=== PATIENT | female | born 1925 | race African-American/Black ===

== ENCOUNTER 2017-06-18 09:43 | Inpatient (IN) | payer MEDICARE, MEDICAID ==
[2017-06-18] MEDS ORDERED: Ondansetron HCl/PF 4 MG/2 ML Vial ONE ×2 (10:27→10:45)
[2017-06-18 10:29] LABS: Bilirubin Negative (Negative); Blood, Urine Trace (Negative); Glucose, Urine (Dipstick) Negative (Negative); Ketone, Urine 40 mg/dL (Negative); Nitrite Negative (Negative); Protein, Urine (Dipstick) 100 mg/dL (Neg-Trace); Urobilinogen 0.2 mg/dL (0.2-1.0)
[2017-06-18 10:32] LABS: Bacteria/HPF 4+ HPF (None Seen); Hyaline Casts/LPF 0-3 HYALINE CAST LPF (0-3 Hyaline); Squamous Epithelial 0-3 HPF (0-3)
[2017-06-18 10:34] LABS: Renal Epithelial None Seen HPF (0-3); Transitional Epithelial NONE SEEN HPF (0-3)
[2017-06-18] MEDS ORDERED: Morphine 10 MG/ML VIAL ONE (10:45)
[2017-06-18 11:26] LABS: Hematocrit 52.6 % (36.0-47.0); Mean Platelet Volume 8.7 fL (7.4-10.4); Red Blood Cell (RBC) Count 5.82 mill/uL (4.20-5.40); White Blood Cell (WBC) Count 16.6 thou/uL (4.8-10.8)
[2017-06-18] MEDS ORDERED: Pantoprazole 80 MG, Admixture Fee 1 EACH in Sodium Chloride 0.9% 100 ML IVP SCH (11:30)
[2017-06-18 11:40] LABS: PTT 27.1 SEC (22.9-36.1); Prothrombin Time 13.7 SEC (12.0-14.7)
[2017-06-18 11:43] LABS: #Basophils 0.1 thou/uL (0.0-0.2); #Eosinphils 0.1 thou/uL (0.0-0.7); #Lymphocytes 2.4 thou/uL (1.20-3.40); #Monocytes 0.7 thou/uL (0.11-0.59); #Neutrophils 13.3 thou/uL (1.40-6.50); %Basophils 0.3 % (0.0-1.0); %Eosinophils 0.6 % (0.0-10.0); %Lymphocytes 14.7 % (21.0-51.0); Band 2 % (5-11); Neutrophil 77 % (42-75)
[2017-06-18 11:48] LABS: ALT (SGPT) 8 U/L (8-55); AST (SGOT) 14 U/L (5-34); Alkaline Phosphatase 108 U/L (40-150); Anion Gap 21 mmol/L (10-20); BUN (Urea Nitrogen) 12 mg/dL (9.8-20.1); Bilirubin, Total 0.7 mg/dL (0.2-1.2); Calc. Creatinine Clearance 0 mL/min (70-130); Calcium 9.6 mg/dL (7.8-10.44); Carbon Dioxide 19 mmol/L (23-31); Chloride 101 mmol/L (98-107); Estimated GFR-MDRD 64; Globulin 3.4 g/dL (2.4-3.5); Lipase Less than 4 U/L (8-78); Protein, Total 7.2 g/dL (6.0-8.3)
--- NOTE | 2017-06-18 12:08 | RAD ---
ACUTE ABDOMINAL SERIES: INDICATION: Abdominal pain. FINDINGS: There are dilated loops of small bowel with differential air fluid levels seen within the central ab domen suspicious for a partial small bowel obstruction. The lungs are clear. cardiomediastinal kaitlynn houette is within normal limits. There are vascular calcifications involving the aortic arch. Ther e is advanced degenerative change of both glenohumeral joints. There is scattered degenerative jones ge of the lower lumbar spine. IMPRESSION: Findings suggesting partial small bowel obstruction. No definite free air identified. POS: [facility]
[2017-06-18] MEDS ORDERED: Fentanyl 100 MCG/2 ML VIAL ONE (12:47)
[2017-06-18] MEDS ORDERED: Lidocaine Viscous Sol 2% 15 ml UD Cup ONE ×2 (12:47→12:48)
[2017-06-18] MEDS ORDERED: Benzocaine 20% Spray 60 ML CAN ONE (12:47)
[2017-06-18] MEDS ORDERED: Oxymetazoline HCl 0.05% ( 15 ML ) ONE (13:02)
--- NOTE | 2017-06-18 13:15 | CT ---
CT OF THE ABDOMEN AND PELVIS WITH IV CONTRAST: Date: 06/18/17 INDICATION: History of vomiting and abdominal pain. History of cholecystectomy. COMPARISON: CT of the abdomen and pelvis dated 10/26/16. FINDINGS: There are numerous dilated loops of small bowel within the central abdomen with detecting swirling o f the mesentery suspicious for mesenteric herniation and close loop obstruction. This is suspicious for small bowel type volvulus. There is edema within the mesenteric leads involved. No definite pneu matosis is evident. No portal venous gas is present. There is decompression of the distal small bret l and colon. Mild scattered free fluid is seen within the abdomen and pelvis. There is a stable left renal cyst and lobular contour of both kidneys. Bladder, rectum, and perirectal soft tissues are un remarkable. There are numerous small pulmonary nodules within both lower lobes which are stable. The re is a small hiatal hernia. The liver, spleen, pancreas, and adrenal glands are within normal limit s. There is diffuse osteopenia. There is scattered degenerative change. IMPRESSION: 1. Findings suspicious for a high grade close loop small bowel obstruction. Surgical consultation i s recommended. 2. Fat-containing paraumbilical hernia. 3. Stable bibasilar pulmonary nodules. 4. Hiatal hernia. 5. Left renal cyst. POS: [facility]
[2017-06-18] MEDS ORDERED: Morphine 4 MG/ML Carpuject SLOW IVP PRN (13:18)
[2017-06-18] MEDS ORDERED: Sodium Chloride 0.9% 500 ML IV SCH (13:30)
[2017-06-18] MEDS ORDERED: Ondansetron HCl/PF 8 MG in Sodium Chloride 0.9% 50 ML IVPB SCH ×2 (13:30→18:45)
--- NOTE | 2017-06-18 13:35 | HP ---
CHIEF COMPLAINT: Epigastric pain, nausea, vomiting. HISTORY OF PRESENT ILLNESS: The patient is an 89-year-old female who was about 18-hour history of m idepigastric pain associated with nausea and vomiting. No previous episodes. She had an open cristiano cystectomy about 1981. She reports passing flatus and having 3 bowel movements last night. She has frequent constipation. PAST MEDICAL HISTORY: Hypertension, obesity, asthma, arthritis. PAST SURGICAL HISTORY: Open cholecystectomy. MEDICATIONS: Include omeprazole, mirtazapine, Klor-Con, montelukast, furosemide, Tylenol with codei ne, losartan, carvedilol, clonidine. ALLERGIES: PENICILLIN. SOCIAL HISTORY: She lives by herself. No tobacco or alcohol. FAMILY HISTORY: Hypertension. PHYSICAL EXAMINATION VITAL SIGNS: Heart rate 123, blood pressure 137/96, 96% saturation. GENERAL: She is awake, alert. She is actively vomiting. She does not have an NG tube in yet. HEENT: Otherwise, unremarkable with exception for alopecia. She is morbidly obese. LUNGS: Clear. HEART: Regular rate and rhythm. ABDOMEN: Distended. She is moderately tender in the central abdomen. She has an umbilical hernia that is reducible. Bowel sounds are quiet. LABORATORY DATA AND X-RAY FINDINGS: She has white count of 16.6, H and H 16 and 52, platelet count 189. Electrolytes show sodium 137, potassium 3.5, chloride 101, CO2 of 19, glucose 215, BUN of 12, creatinine 0.9. Urinalysis, 11-20 white cells. PT 13, INR 1. She had a KUB that shows partial sma ll-bowel obstruction. She had a CT scan that showed a transition zone in the mid small bowel with s ome mild swirling of the mesentery. No defined closed loop, but very dilated proximal small bowel a nd stomach. ASSESSMENT: Small-bowel obstruction. PLAN: NG suction, IV hydration. If she does not respond, recommend surgical therapy. We will get medical assistance in consultation.
[2017-06-18 15:00] VITALS: BMI 41.1
[2017-06-18] MEDS: 1/2 NS w/KCL 20 mEq 1,000 ML IV SCH ×2 (15:02→20:36)
[2017-06-18] MEDS ORDERED: Morphine 4 MG/ML VIAL SLOW IVP PRN (15:16)
[2017-06-18] MEDS: Morphine PF 1 MG/ML SYR IVP PRN (15:19)
[2017-06-18] MEDS ORDERED: ISOVUE-370 76%-LOCM 1 ML ONE (15:43)
[2017-06-18] MEDS ORDERED: PROVENTIL INHALER 6.7 G (200 INHALATIONS) INH PRN (18:13)
[2017-06-18] MEDS: Morphine 4 MG/ML VIAL SLOW IVP PRN ×2 (18:35→22:35)
[2017-06-18] MEDS: Mometasone/Formoterol 120 PUFF INHALER INH SCH (19:33)
--- NOTE | 2017-06-18 23:21 | CON ---
DATE OF CONSULTATION: 06/18/2017 PRIMARY CARE PROVIDER: Dr. Leo. PRIMARY SERVICE ATTENDING: Dr. Hakan Gutierrez. CHIEF COMPLAINT: Abdominal pain, nausea, and vomiting. HISTORY OF PRESENT ILLNESS: This is an 89-year-old -Dominican female who complains of less th an 24-hour history of nausea, vomiting, and midepigastric abdominal pain. The patient states she morgan d multiple bouts of emesis overnight on 06/17/2017 and 06/18/2017. The patient denied any recent tr auma injury, travel history, or change to dietary habits. The patient states she does have difficul ty with recurrent constipation, but has noticed approximately 3 bowel movements in the last 24 hours . The patient denied any specific melena or dark stools. The patient denied any history of stomach ulcerations or prior history of bowel obstruction. The patient does admit that she underwent a cho lecystectomy in the past, but no current surgeries of the abdomen. The patient initially rated the pain as 5/10, sharp, with associated nausea and vomiting. The patient did not try to leave the symp toms with any specific medications due to persistent and recurrent vomiting. In the emergency room, the patient underwent general evaluation with KUB showing evidence of partial bowel obstruction and CT of the abdomen and pelvis confirming high grade bowel obstruction likely in the mid small bowel region. The patient was evaluated by the General Surgery Service with recommendations for NG tube p lacement, IV fluids, pain control and antiemetics. The patient was transferred to the surgical floo r for observation and evaluation. PAST MEDICAL HISTORY: 1. Hypertension. 2. Hyperlipidemia. 3. Degenerative joint disease. 4. Anxiety disorder. 5. Morbid obesity. 6. History of asthma. PAST SURGICAL HISTORY: Status post cholecystectomy. CURRENT MEDICATIONS: 1. ProAir HFA 2 puffs inhaled q.6 hours p.r.n. 2. Amlodipine 5 mg one tab p.o. daily. 3. Coreg 3.125 mg p.o. b.i.d. 4. Celexa 10 mg p.o. daily. 5. Lasix 20 mg 1 tab p.o. daily. 6. Losartan 50 mg 1 tab p.o. daily. 7. Lovastatin 40 mg p.o. at bedtime. 8. Reglan 10 mg p.o. t.i.d. 9. Remeron 15 mg p.o. at bedtime. 10. Dulera 200/5 mcg 2 puffs inhaled b.i.d. 11. Singulair 10 mg p.o. daily. 12. Multivitamin 1 tab p.o. daily. 13. Omeprazole 20 mg 1 tab p.o. daily. 14. Klor-Con 8 mEq p.o. daily. 15. Clonidine 0.2 mg p.o. b.i.d. ALLERGIES: PENICILLIN. FAMILY HISTORY: Sister with breast cancer. Another sister with coronary artery disease with PR at 49 years of age. SOCIAL HISTORY: The patient is , resides in [place], [place]. No current alcohol, tobacco or il licit drug use. Accompanied by multiple family members in the hospital. REVIEW OF SYSTEMS: The following complete review of systems was negative, unless otherwise mentione d in the HPI or below: Constitutional: Weight loss or gain, ability to conduct usual activities. Skin: Rash, itching. Eyes: Double vision, pain. ENT/Mouth: Nose bleeding, neck stiffness, pain, tenderness. Cardiovascular: Palpitations, dyspnea on exertion, orthopnea. Respiratory: Shortness of breath, wheezing, cough, hemoptysis, fever or night sweats. Gastrointestinal: Poor appetite, abdominal pain, heartburn, nausea, vomiting, constipation, or diar jean. Genitourinary: Urgency, frequency, dysuria, nocturia. Musculoskeletal: Pain, swelling. Neurologic/Psychiatric: Anxiety, depression. Allergy/Immunologic: Skin rash, bleeding tendency. PHYSICAL EXAMINATION: VITAL SIGNS: Currently, blood pressure 128/83, pulse 106, respiratory rate 14, temperature 97.5 deg zoraida Fahrenheit, O2 saturation 98% on room air. GENERAL APPEARANCE: This is an 89-year-old -Dominican female, in mild to moderate distress. HEENT: Pupils are equal, round, and reactive to light and accommodation. Extraocular muscles are i ntact. No scleral icterus, no conjunctival injection. Nares patent. OP is clear. Teeth in fair r epair. NECK: Supple, no cervical adenopathy, no thyromegaly, no carotid bruits, no JVD appreciated. Cervi solomon spine with full active and passive range of motion. CHEST: Lungs with diminished breath sounds in the bases bilaterally. CARDIOVASCULAR: S1, S2 with tachycardia. ABDOMEN: Obese, distended with tenderness to palpation in the midepigastric region. Bowel sounds d iminished in all four quadrants. No palpable mass. Landmarks are difficult to palpate due to patie nt's body habitus. EXTREMITIES: Warm and dry with fair turgor. No clubbing, cyanosis or asymmetric edema appreciated. Pulses are palpable distally at the dorsalis pedis, posterior tibial, and popliteal arteries bilat erally. Capillary refill less than 2 seconds. NEUROLOGIC: Cranial nerves II-XII are grossly intact. No focal or lateralizing signs appreciated. PERTINENT LABORATORY AND X-RAY FINDINGS: Sodium 137, potassium 3.5, chloride 101, CO2 of 19, BUN 12 , creatinine 0.99, estimated GFR 64, glucose 215, calcium 9.6. LFTs within normal limits. Albumin 3.8, lipase less than 4. CBC showed a white blood cell count of 16.6, hemoglobin 17, hematocrit 53, platelet count 189 with 88% neutrophilia. KUB of the abdomen dated 06/18/2017 showed partial small -bowel obstruction. CT of the abdomen and pelvis dated 06/18/2017 showed high grade transition zone in the mid small bowel region concerning for obstruction. ASSESSMENT AND PLAN: 1. Small-bowel obstruction. The patient will be placed on the surgical floor with primary attendin g General Surgery Service. Continue NG tube with low intermittent wall suction. Ice chips p.r.n. Continue morphine sulfate 4 mg IV q.3 hours p.r.n. Continue antiemetics with Zofran 8 mg IV q.6 elena rs p.r.n. We will continue to monitor clinically. The patient may need additional intervention inc luding surgical intervention. 2. Nausea and vomiting secondary to #1. Continue intravenous fluids with normal saline. Antiemeti cs with Zofran. 3. Metabolic acidosis. Secondarily to #1. We will continue intravenous fluids and monitor clinica lly. Repeat CO2 level in the a.m. 4. Hypertension. We will hold antihypertensive regimen given the patient's n.p.o. status. Resume when clinically able to tolerate p.o. intake. 5. History of asthma. No current evidence of exacerbation. Resume home metered dose inhalers incl uding ProAir HFA and Dulera. Continue oxygen supplementation to maintain O2 saturation greater than or equal to 90%. 6. Prophylaxis. Sequential compression devices while in bed. Protonix 40 mg IV q.24 hours. 7. Code status is FULL. Surrogate medical decision maker is the patient's daughter. Thank you for the consult. We will continue to follow with the primary service.
[2017-06-19 05:25] LABS: ALT (SGPT) 27 U/L (8-55); AST (SGOT) 45 U/L (5-34); Alkaline Phosphatase 100 U/L (40-150); Anion Gap 22 mmol/L (10-20); BUN (Urea Nitrogen) 19 mg/dL (9.8-20.1); Band 15 % (5-11); Bilirubin, Total 0.6 mg/dL (0.2-1.2); Calc. Creatinine Clearance 28 mL/min (70-130); Calcium 9.1 mg/dL (7.8-10.44); Carbon Dioxide 16 mmol/L (23-31); Chloride 103 mmol/L (98-107); Estimated GFR-MDRD 26; Globulin 3.3 g/dL (2.4-3.5); Hematocrit 54.7 % (36.0-47.0); Mean Platelet Volume 8.3 fL (7.4-10.4); Neutrophil 66 % (42-75); Protein, Total 6.4 g/dL (6.0-8.3); Red Blood Cell (RBC) Count 5.86 mill/uL (4.20-5.40); White Blood Cell (WBC) Count 22.6 thou/uL (4.8-10.8)
[2017-06-19] MEDS: 1/2 NS w/KCL 20 mEq 1,000 ML IV SCH ×3 (05:57→21:05)
[2017-06-19] MEDS: Mometasone/Formoterol 120 PUFF INHALER INH SCH ×2 (07:16→18:40)
[2017-06-19] MEDS ORDERED: Sodium Chloride 0.9% 1,000 ML IV SCH (08:00)
--- NOTE | 2017-06-19 08:21 | RAD ---
SEMIUPRIGHT PORTABLE CHEST 1 VIEW: HISTORY: An 89-year-old female with shortness of breath. COMPARISON: 03/24/17. FINDINGS: Less than optimal inspiration. Blunting of both costophrenic angles with some linear stranding in t he infrahilar regions bilaterally. No new confluent process. Given less inspiration, appearance is stable from prior study. IMPRESSION: Poor inspiratory effort with some vascular crowding and some increased markings in the bases and sli ght costophrenic angle blunting without confluent pneumonia. Continue short-term followup. POS: [facility]
--- NOTE | 2017-06-19 08:22 | RAD ---
ABDOMEN 1 VIEW: FINDINGS: NG tube is noted with the tip extending into the stomach. There is some residual contrast within th e kidneys from previous CT scan. There are some abnormally dilated loops of small bowel in the uppe r and mid abdomen, evidence for small bowel obstruction. The patient does have a large body habitus . IMPRESSION: Nasogastric tube in place. Several small bowel loops which are minimally dilated. Evidence for sma ll bowel obstruction. Continue short-term followup. POS: [facility]
[2017-06-19] MEDS ORDERED: Midazolam HCl 2 mg/2 ml Vial ONE (09:10)
[2017-06-19] MEDS ORDERED: Propofol 1,000 MG/100 ML VIAL IV ONE (09:10)
[2017-06-19 09:27] LABS: Troponin I 0.115 ng/mL (< 0.028)
[2017-06-19] MEDS: Pantoprazole 40 MG VIAL IVP SCH (10:08)
[2017-06-19] MEDS ORDERED: Albumin 5% 500 ML ONE ×2 (10:47→12:16)
[2017-06-19] MEDS ORDERED: Norepinephrine 4 MG/4 ML VIAL ONE (10:47)
[2017-06-19] MEDS ORDERED: Fentanyl 250 MCG/5 ML VIAL ONE (10:47)
[2017-06-19] MEDS ORDERED: Lidocaine 2% Jelly 5 ML TUBE ONE (11:03)
[2017-06-19] MEDS ORDERED: PHENYLEPHRINE-NS 100 MCG/ML 10 ML SYRINGE ONE (11:15)
[2017-06-19] MEDS ORDERED: Propofol 200 MG/20 ML VIAL ONE (11:15)
[2017-06-19] MEDS ORDERED: Glycopyrrolate 0.2 MG/ML 5 ML SYRINGE ONE (11:15)
[2017-06-19] MEDS ORDERED: Succinylcholine Chloride 20 MG/ML 10 ml SYRINGE FS ONE (11:15)
[2017-06-19] MEDS ORDERED: Lidocaine 2% PF 10 ML AMP (For Epidural Use) ONE (11:15)
--- NOTE | 2017-06-19 12:01 | PDOC.PN ---
- Subjective Encounter Start Date: 06/19/17 Encounter Start Time: 11:15 -: old records requested/rev code green was called, pt was hypotensive. - Objective MAR Reviewed: Yes Vital Signs & Weight: Vital Signs (12 hours) Temp Pulse Resp BP Pulse Ox 06/19/17 08:20 98.1 F 110 H 23 H 98 06/19/17 08:10 98.1 F 110 H 23 H 101/51 L 98 06/19/17 07:18 97 06/19/17 07:16 116 H 16 06/19/17 04:20 97.5 F L 109 H 16 91/64 97 06/19/17 01:14 98 06/19/17 00:10 98.4 F 110 H 18 93/63 99 Most Recent Monitor Data Heart Rate from ECG 106 NIBP 110/52 NIBP BP-Mean 63 Respiration from ECG 23 SpO2 99 I&O: 06/18/17 06/19/17 06/20/17 06:59 06:59 06:59 Intake Total 2275 2000 Output Total 900 395 Balance 1375 1605 Result Diagrams: 06/19/17 04:13 06/19/17 04:13 Additional Labs: Accuchecks 06/19/17 08:05 POC Glucose 154 H Radiology Reviewed by me: Yes Phys Exam - Physical Examination Constitutional: NAD HEENT: PERRLA, moist MMs, sclera anicteric Neck: no JVD, supple Respiratory: no wheezing, no rales, no rhonchi Cardiovascular: RRR, no significant murmur, no rub Gastrointestinal: soft, non-tender, no distention, positive bowel sounds Musculoskeletal: no edema, pulses present Neurological: non-focal, normal sensation Psychiatric: normal affect, A&O x 3 Skin: no rash, normal turgor Dx/Plan (1) Acute kidney failure Status: Acute (2) Encephalopathy acute Code(s): G93.40 - ENCEPHALOPATHY, UNSPECIFIED Status: Acute (3) Hypotension Status: Acute (4) SBO (small bowel obstruction) Code(s): K56.609 - UNSP INTESTNL OBST, UNSP TO PARTIAL VERSUS COMPLETE OBST Status: Acute (5) Sepsis Code(s): A41.9 - SEPSIS, UNSPECIFIED ORGANISM Status: Acute (6) Anxiety and depression Code(s): F41.9 - ANXIETY DISORDER, UNSPECIFIED; F32.9 - MAJOR DEPRESSIVE DISORDER, SINGLE EPISODE, UNSPECIFIED Status: Chronic (7) Asthma Code(s): J45.909 - UNSPECIFIED ASTHMA, UNCOMPLICATED Status: Chronic (8) GERD (gastroesophageal reflux disease) Code(s): K21.9 - GASTRO-ESOPHAGEAL REFLUX DISEASE WITHOUT ESOPHAGITIS Status: Chronic (9) HLD (hyperlipidemia) Code(s): E78.5 - HYPERLIPIDEMIA, UNSPECIFIED Status: Chronic Qualifiers: Hyperlipidemia type: unspecified Qualified Code(s): E78.5 - Hyperlipidemia , unspecified (10) HTN (hypertension) Code(s): I10 - ESSENTIAL (PRIMARY) HYPERTENSION Status: Chronic Qualifiers: (11) Morbid obesity with BMI of 40.0-44.9, adult Code(s): E66.01 - MORBID (SEVERE) OBESITY DUE TO EXCESS CALORIES; Z68.41 - BODY MASS INDEX (BMI) 40.0-44.9, ADULT Status: Chronic (12) Acute abdomen Code(s): R10.0 - ACUTE ABDOMEN Status: Suspected (13) Lactic acidosis Code(s): E87.2 - ACIDOSIS Status: Acute - Plan cont current plan of care * will transfer to ccu * will give bolus of fluid * will need surgery today * discussed with surgeon. * will monitor Review of Systems - Review of Systems Other: unable to review as pt is altered. - Medications/Allergies Allergies/Adverse Reactions: Allergies Allergy/AdvReac Type Severity Reaction Status Date / Time Penicillins Allergy rash--"been Verified 03/24/17 23:23 a long time" Medications: Current Medications Albuterol Sulfate (Proventil Hfa) 2 puff INH Q6H PRN PRN Reason: SOB &/or Wheezing Albuterol/Ipratropium (Duoneb) 3 ml NEB [id number] SAIMA Potassium Chloride/Sodium Chloride (1/2 Ns W/Kcl 20 Meq) 1,000 mls @ 125 mls/ hr IV .Q8H SAIMA Last Admin: 06/19/17 05:57 Dose: 1,000 mls Levofloxacin 500 mg/ Device 100 mls @ 100 mls/hr IVPB WILLCALL SAIMA Stop: 06/20/17 10:16 Mometasone Furoate/Formoterol Fumar (Dulera 200 Mcg/5 Mcg Inhaler) 2 puff INH BID-RT SAIMA Last Admin: 06/19/17 07:16 Dose: 2 puff Morphine Sulfate (Duramorph) 2 mg IVP Q4H PRN PRN Reason: Mild-Moderate Pain (1-5) Last Admin: 06/18/17 15:19 Dose: 2 mg Morphine Sulfate (Morphine Sulfate) 4 mg SLOW IVP Q3H PRN PRN Reason: Moderate to Severe Pain (6-10) Last Admin: 06/18/17 22:35 Dose: 4 mg Pantoprazole Sodium (Protonix) 40 mg IVP DAILY [facility] Last Admin: 06/19/17 10:08 Dose: 40 mg
[2017-06-19] MEDS ORDERED: SUGAMMADEX SODIUM 500 MG/5 ML VIAL ONE (12:39)
--- NOTE | 2017-06-19 13:55 | CON ---
DATE OF SERVICE: 06/19/2017 SERVICE: Pulmonary Medicine. REASON FOR CONSULTATION: Hypotension. HISTORY OF PRESENT ILLNESS: The patient is an 89-year-old -[place]an female who was in her usual state of health when she started to have a history of mid epigastric discomfort associated with nausea and vomiting roughly 1 day ago. She had no previous episodes of something similar. Otherwise, she had a couple of normal bowel movements and was passing flatus yesterday, but has stopped doing this. She had increasing abdominal pain and distention overnight with an increasing lactate. Blood pressures fell off. A Code Ramón was called this morning. She was given a liter of fluid and subsequently transitioned down to the ICU while we were waiting for her to go to the operating room. She currently denies any fevers, chills, chest discomfort, palpitations or difficulty with breathing. PAST MEDICAL HISTORY: 1. Hypertension. 2. Obesity. 3. Asthma. 4. Osteoarthritis. 5. Anxiety disorder. PAST SURGICAL HISTORY: Cholecystectomy. MEDICATIONS: List of her inpatient medications was reviewed. No updates were made. ALLERGIES: PENICILLIN. FAMILY HISTORY: Noncontributory. SOCIAL HISTORY: She lives in [place], [place]. She denies any alcohol, tobacco or illicit drug use. She has no exposure to chemicals, dust asbestos or tuberculosis. REVIEW OF SYSTEMS: General, head, ears, eyes, nose, throat, cardiovascular, respiratory, GI, , musculoskeletal, neurologic and skin is negative except as mentioned in the HPI. PHYSICAL EXAMINATION: VITAL SIGNS: Afebrile, pulse 106, blood pressure 110/52, respirations 23, saturation 99% on 2 liters nasal cannula. GENERAL: The patient is awake and alert, in no apparent distress. LUNGS: Decent air entry. Dependent crackles are minimal. HEART: Normal rate, regular. ABDOMEN: Distended. Tender to palpation throughout with positive rebound. Bowel sounds absent. GENITOURINARY: Mclaughlin catheter in place. NEUROLOGIC: Grossly nonfocal. LABORATORY DATA: WBC 22.6 and increasing, hemoglobin 16.9, platelets 299,000. INR 1.0. Creatinine 2.16, anion gap 22, bicarbonate 16. Basic metabolic profile is otherwise unremarkable. AST is up trending. Troponin 0.115, lactate 4.7. Liver function studies are unremarkable. Lipase is below the assay limits of normal. Urinalysis is positive for ketones, blood, leukocyte esterase, and small number of white blood cells. IMAGIN. X-ray of the abdomen demonstrates NG tube in good position. There are several small loops of bowel, are minimally dilated. There is evidence of a small-bowel obstruction: 2. Chest x-ray demonstrates no acute cardiopulmonary abnormality. There are low lung volumes associated with abdominal distention. 3. CT of the abdomen and pelvis demonstrates findings suspicious for high grade closed loop small-bowel obstruction. Fat containing a periumbilical hernia. Bibasilar pulmonary nodules are stable. There is a hiatal hernia in the left renal cyst. ASSESSMENT: 1. Severe sepsis. 2. Small-bowel obstruction, suspected. 3. Peritonitis, possible. 4. Ischemic bowel, possible. 5. Asthma without acute exacerbation. 6. Deconditioning. 7. Debility, advanced. 8. Obstructive sleep apnea. PLAN: We will continue to provide supportive care. It would not surprise me if the patient came back from the operating room on mechanical ventilation. If this occurs, we will be available in that period for support. Her blood pressure responded to 1 liter of fluid. Empiric antibiotics directed at GI pathology will be initiated. The patient is extraordinarily sick at this time, but hopefully surgical procedure is curative. We will know more after the laparotomy. ANATOLIY
--- NOTE | 2017-06-19 14:18 | RAD ---
SINGLE VIEW OF THE CHEST 06/19/17 COMPARISON: 06/19/17 at 8:01 a.m. HISTORY: Central line placement. FINDINGS: Single view of the chest shows normal sized cardiomediastinal silhouette. An NG tube courses off the anterior aspect of the film. There is a left subclavian central venous catheter with its tip in the superior vena cava. No pneumothorax is seen. There is obscurity of the left costophrenic angle whic h may represent atelectasis or a small left lower lobe infiltrate. IMPRESSION: 1. Status post central line placement without evidence of complication. 2. Left basilar atelectasis versus infiltrate. POS: [facility]
[2017-06-19] MEDS: Morphine PF 1 MG/ML SYR IVP PRN ×2 (14:39→20:13)
[2017-06-19] MEDS: MEROPENEM 1 GM/50 ML 1 GM in Premix Bag 1 BAG IVPB SCH ×2 (14:42→21:06)
--- NOTE | 2017-06-19 17:12 | OP ---
PREOPERATIVE DIAGNOSIS: Small-bowel obstruction with possible ischemic bowel. SURGEON: Hakan Gutierrez M.D. PROCEDURE PERFORMED: Exploratory laparotomy, small bowel resection. INDICATIONS: This is an 89-year-old female, who presented last night with a small-bowel obstruction , continued to get worse, became more acidotic, more pain. FINDINGS: There is about 4 feet of very ischemic/possibly necrotic bowel, 4+ feet of healthy bowel. PROCEDURE IN DETAIL: After informed consent was obtained, the patient was taken to the operating ro om and given general endotracheal anesthesia. She was placed in the supine position. Her abdomen w as prepped and draped in the usual fashion. A midline incision was performed. The subcu divided sh arply. She had umbilical hernia, but there was no bowel within it. The fascia was incised sharply with a 10 blade scalpel and the peritoneum opened. There was quite a bit of serosanguineous periton eal fluid about 2 liters that was removed. Underneath the omentum, it was bharath necrotic appearing bowel. The bowel was reduced and it turned out there was a band that was constricting proximally an d distally. This was lysed. It was healthy bowel proximally and healthy bowel distally. It was th e central portion of the small bowel. The bowel looked pretty necrotic, went ahead and allowed it t o pink up as much as possible, washed the abdomen thoroughly, came back to it, there were multiple a reas that were very questionable. Even though a lot of the bowel seemed to pink up, there were a lo t of questionable areas, so I lamented on whether to do a second look operation or to resect the sma ll bowel and do a primary anastomosis. I measured off the proximal bowel, there was about 4 feet of proximal bowel and about a foot of distal small bowel was healthy. Elected that in her state she c ould not handle another septic event and went ahead and removed this questionable bowel. The bowel was stapled with a ROSARIO-75 on either end then enterotomies made and a [id number] functional end-to- end anastomosis was performed utilizing ROSARIO-75 and the common enterotomy closed with a ROSARIO-75. Then the mesentery was divided utilizing the large LigaSure and the specimen sent to pathology for [facility] er analysis. The mesenteric defect was closed with a running 3-0 Vicryl. The abdomen was thoroughl y irrigated and irrigation fluid removed. NG placement confirmed. Hemostasis was assured. The ome ntum placed anteriorly. The hernia had been completely reduced. The fascia was closed with a runni ng looped #1 PDS to include the hernia as well. Then, gloves and gowns were changed and the subcuta neous irrigated with pulse salvage inspector. Then the skin closed loosely with skin gem which were florencia joan in between. A sterile bandage applied. The patient tolerated the procedure well and transferre d to recovery in fair condition.
[2017-06-20] MEDS: Morphine 10 MG/ML VIAL SLOW IVP PRN ×2 (00:45→07:36)
[2017-06-20 04:47] LABS: #Lymphocytes 1.9 thou/uL (1.20-3.40); #Monocytes 0.7 thou/uL (0.11-0.59); #Neutrophils 5.7 thou/uL (1.40-6.50); %Basophils 0.1 % (0.0-1.0); %Lymphocytes 22.9 % (21.0-51.0); %Monocytes 8.4 % (0.0-10.0); Hematocrit 35.7 % (36.0-47.0); White Blood Cell (WBC) Count 8.3 thou/uL (4.8-10.8)
[2017-06-20 04:52] LABS: ALT (SGPT) 208 U/L (8-55); AST (SGOT) 247 U/L (5-34); Alkaline Phosphatase 58 U/L (40-150); Anion Gap 15 mmol/L (10-20); BUN (Urea Nitrogen) 30 mg/dL (9.8-20.1); Bilirubin, Total 0.5 mg/dL (0.2-1.2); Calc. Creatinine Clearance 31 mL/min (70-130); Calcium 7.8 mg/dL (7.8-10.44); Carbon Dioxide 20 mmol/L (23-31); Chloride 109 mmol/L (98-107); Estimated GFR-MDRD 29; Globulin 2.2 g/dL (2.4-3.5); Magnesium 1.5 mg/dL (1.6-2.6); Phosphorus 4.5 mg/dL (2.3-4.7); Protein, Total 5.3 g/dL (6.0-8.3)
[2017-06-20] MEDS: MEROPENEM 1 GM/50 ML 1 GM in Premix Bag 1 BAG IVPB SCH ×3 (06:02→21:06)
[2017-06-20] MEDS: 1/2 NS w/KCL 20 mEq 1,000 ML IV SCH ×3 (06:03→21:08)
[2017-06-20] MEDS: Mometasone/Formoterol 120 PUFF INHALER INH SCH ×2 (06:51→18:58)
[2017-06-20] MEDS: Pantoprazole 40 MG VIAL IVP SCH (07:36)
[2017-06-20] MEDS: Morphine PF 1 MG/ML SYR IVP PRN (10:56)
--- NOTE | 2017-06-20 11:49 | PRG ---
DATE OF SERVICE: 06/20/2017 SERVICE: Pulmonary Medicine. INTERVAL HISTORY: The patient is doing fine from a cardiovascular and respiratory standpoint. She has appropriate abdominal discomfort. Otherwise, she denies having any significant difficulty with breathing. She has no nausea or vomiting. She has not passed any gas and has not had any bowel mov ements. Otherwise, she is progressing as is expected. PHYSICAL EXAMINATION: VITAL SIGNS: Afebrile with a T-max of 99.1. Pulse 118, blood pressure 116/45, respirations 21, sat uration 95% on 2 liters nasal cannula. GENERAL: The patient is awake and alert in no apparent distress. HEENT: Normocephalic, atraumatic. Sclerae are white, conjunctivae pink. Oral and nasal mucosa is moist without lesions. LUNGS: Decent air entry. There are dependent crackles present. There is no prolonged expiratory p hase. Rhonchi are present, but clear with cough. HEART: Tachycardic. Regular. ABDOMEN: Soft, tender to palpation throughout. Bowel sounds are hypoactive. She has splinting ass ociated with abdominal discomfort. GENITOURINARY: Mclaughlin catheter in place. NEUROLOGIC: Grossly nonfocal. LABORATORY DATA: WBC 8.3, hemoglobin 11.5, platelets 162,000. The differential is actually reassur ing. INR 1.0. Creatinine 1.98 and gently improving. Basic metabolic profile is otherwise unremark able. Lactate has cleared to 1.1. AST and ALT are elevated. Magnesium is 1.5. Phosphorus 4.5. IMAGING: Chest x-ray demonstrates decreased lung volumes. Left basilar atelectasis is evident. Th ere may be an infiltrate there, but I favor atelectasis given her current situation. There is a lef t-sided subclavian central venous catheter that terminates in a decent position. Wide carinal angle may be suggestive of left atrial enlargement. ASSESSMENT: 1. Acute hypoxic respiratory failure. 2. Atelectasis, part of the left lower lobe. 3. Severe sepsis. 4. Small-bowel obstruction and ischemic gut, status post laparotomy and small bowel resection. 5. Peritonitis. 6. Asthma without acute exacerbation. 7. Deconditioning. 8. Debility, advanced. 9. Obstructive sleep apnea, mild. PLAN: We will continue supportive care including antibiotics. IV fluids will be decreased slightly . I will change her morphine to 2 mg q.2 hours. Lopressor will be provided on a p.r.n. basis. We will watch her ins and outs and if she becomes significantly volume overloaded, intermittent doses o f Lasix will be provided. We will schedule Tylenol 4 times daily to see if this can decrease narcot ic requirements.
[2017-06-20] MEDS: Acetaminophen 650 MG in Premix Bag 1 BAG IVPB SCH ×3 (12:11→23:17)
[2017-06-20] MEDS ORDERED: Sodium Chloride 0.9% 500 ML IV SCH (12:15)
--- NOTE | 2017-06-20 12:23 | PDOC.PN ---
- Subjective Encounter Start Date: 06/20/17 Encounter Start Time: 07:10 -: old records requested/rev in ccu, with NG tube with LIS, BP stable, NPO, no fever, family bedside - Objective MAR Reviewed: Yes Vital Signs & Weight: Vital Signs (12 hours) Temp Pulse Resp Pulse Ox 06/20/17 12:00 99.6 F 06/20/17 08:00 99.1 F 121 H 22 H 95 06/20/17 07:00 99.1 F 06/20/17 06:50 116 H 19 92 L 06/20/17 04:00 99.0 F 06/20/17 01:17 118 H 23 H 94 L Most Recent Monitor Data Heart Rate from ECG 120 NIBP 117/45 NIBP BP-Mean 74 Respiration from ECG 20 SpO2 96 I&O: 06/19/17 06/20/17 06/21/17 06:59 06:59 06:59 Intake Total 2275 3247 520 Output Total 900 1675 350 Balance 1375 1572 170 Result Diagrams: 06/20/17 04:10 06/20/17 04:10 Radiology Reviewed by me: Yes (chest xray) EKG Reviewed by me: Yes (tachycardia) Phys Exam - Physical Examination Constitutional: NAD HEENT: PERRLA, moist MMs, sclera anicteric ng tube with lis Neck: no JVD, supple Respiratory: no wheezing, no rales, no rhonchi reduced air entry at base Cardiovascular: RRR, no significant murmur, no rub tachycardia tender diffuse Musculoskeletal: no edema, pulses present Neurological: non-focal Lymphatic: no nodes Psychiatric: normal affect Skin: no rash, normal turgor Dx/Plan (1) Acute kidney failure Status: Acute (2) Encephalopathy acute Code(s): G93.40 - ENCEPHALOPATHY, UNSPECIFIED Status: Acute (3) Hypotension Status: Resolved (4) SBO (small bowel obstruction) Code(s): K56.609 - UNSP INTESTNL OBST, UNSP TO PARTIAL VERSUS COMPLETE OBST Status: Acute Comment: s/p laparotomy, small bowel resection (5) Sepsis Code(s): A41.9 - SEPSIS, UNSPECIFIED ORGANISM Status: Acute (6) Anxiety and depression Code(s): F41.9 - ANXIETY DISORDER, UNSPECIFIED; F32.9 - MAJOR DEPRESSIVE DISORDER, SINGLE EPISODE, UNSPECIFIED Status: Chronic (7) Asthma Code(s): J45.909 - UNSPECIFIED ASTHMA, UNCOMPLICATED Status: Chronic (8) GERD (gastroesophageal reflux disease) Code(s): K21.9 - GASTRO-ESOPHAGEAL REFLUX DISEASE WITHOUT ESOPHAGITIS Status: Chronic (9) HLD (hyperlipidemia) Code(s): E78.5 - HYPERLIPIDEMIA, UNSPECIFIED Status: Chronic Qualifiers: Hyperlipidemia type: unspecified Qualified Code(s): E78.5 - Hyperlipidemia , unspecified (10) HTN (hypertension) Code(s): I10 - ESSENTIAL (PRIMARY) HYPERTENSION Status: Chronic Qualifiers: (11) Morbid obesity with BMI of 40.0-44.9, adult Code(s): E66.01 - MORBID (SEVERE) OBESITY DUE TO EXCESS CALORIES; Z68.41 - BODY MASS INDEX (BMI) 40.0-44.9, ADULT Status: Chronic (12) Acute abdomen Code(s): R10.0 - ACUTE ABDOMEN Status: Suspected (13) Lactic acidosis Code(s): E87.2 - ACIDOSIS Status: Acute (14) Peritonitis Code(s): K65.9 - PERITONITIS, UNSPECIFIED Status: Acute (15) Sepsis with acute organ dysfunction Code(s): A41.9 - SEPSIS, UNSPECIFIED ORGANISM; R65.20 - SEVERE SEPSIS WITHOUT SEPTIC SHOCK Status: Acute (16) Left lower lobe pneumonia Code(s): J18.1 - LOBAR PNEUMONIA, UNSPECIFIED ORGANISM Status: Acute (17) Transaminitis Code(s): R74.0 - NONSPEC ELEV OF LEVELS OF TRANSAMNS & LACTIC ACID DEHYDRGNSE Status: Acute - Plan cont current plan of care, plan discussed w/ family, continue antibiotics, respiratory therapy, incentive spirometry * monitor today in ccu * continue ng tube with lis * continue meropenam * discussed with family bedside * repeat labs tomorrow * renal function improving. Review of Systems - Review of Systems Other: not reliable due to dementia - Medications/Allergies Allergies/Adverse Reactions: Allergies Allergy/AdvReac Type Severity Reaction Status Date / Time Penicillins Allergy rash--"been Verified 03/24/17 23:23 a long time" Medications: Current Medications Albuterol Sulfate (Proventil Hfa) 2 puff INH Q6H PRN PRN Reason: SOB &/or Wheezing Albuterol/Ipratropium (Duoneb) 3 ml NEB [id number] [facility] Last Admin: 06/20/17 06:50 Dose: 3 ml Meropenem 1 gm/ Device 50 mls @ 100 mls/hr IVPB Q8HR [facility] Last Admin: 06/20/17 06:02 Dose: 50 mls Acetaminophen 650 mg/ Device 65 mls @ 400 mls/hr IVPB Q6HR [facility] Stop: 06/21/17 06:10 Last Admin: 06/20/17 12:11 Dose: 65 mls Potassium Chloride/Sodium Chloride (1/2 Ns W/Kcl 20 Meq) 1,000 mls @ 100 mls/ hr IV .Q10H [facility] Sodium Chloride (Normal Saline 0.9%) 500 mls @ 999 mls/hr IV .Q31M [facility] Stop: 06/20/17 12:45 Last Admin: 06/20/17 12:22 Dose: 500 mls Metoprolol Tartrate (Lopressor) 5 mg IVP Q6H PRN PRN Reason: HR>110 Mometasone Furoate/Formoterol Fumar (Dulera 200 Mcg/5 Mcg Inhaler) 2 puff INH BID-RT [facility] Last Admin: 06/20/17 06:51 Dose: 2 puff Morphine Sulfate (Duramorph) 2 mg IVP Q2H PRN PRN Reason: Mild-Moderate Pain (1-5) Pantoprazole Sodium (Protonix) 40 mg IVP DAILY [facility] Last Admin: 06/20/17 07:36 Dose: 40 mg
[2017-06-20] MEDS: Metoprolol Tartrate 5 MG/5 ML VIAL IVP PRN (14:31)
[2017-06-21] MEDS: 1/2 NS w/KCL 20 mEq 1,000 ML IV SCH ×4 (02:16→22:04)
[2017-06-21] MEDS: Acetaminophen 650 MG in Premix Bag 1 BAG IVPB SCH (05:37)
[2017-06-21] MEDS: MEROPENEM 1 GM/50 ML 1 GM in Premix Bag 1 BAG IVPB SCH ×3 (05:37→21:33)
[2017-06-21] MEDS: Mometasone/Formoterol 120 PUFF INHALER INH SCH ×2 (07:02→18:54)
[2017-06-21 07:29] LABS: #Lymphocytes 2.5 thou/uL (1.20-3.40); #Monocytes 0.6 thou/uL (0.11-0.59); #Neutrophils 7.4 thou/uL (1.40-6.50); %Basophils 0.1 % (0.0-1.0); %Eosinophils 0.3 % (0.0-10.0); %Lymphocytes 23.6 % (21.0-51.0); Hematocrit 34.9 % (36.0-47.0); Mean Platelet Volume 7.6 fL (7.4-10.4); Red Blood Cell (RBC) Count 3.69 mill/uL (4.20-5.40); White Blood Cell (WBC) Count 10.5 thou/uL (4.8-10.8)
[2017-06-21 07:52] LABS: Anion Gap 14 mmol/L (10-20); BUN (Urea Nitrogen) 24 mg/dL (9.8-20.1); Calc. Creatinine Clearance 60 mL/min (70-130); Calcium 8.9 mg/dL (7.8-10.44); Carbon Dioxide 20 mmol/L (23-31); Chloride 110 mmol/L (98-107); Estimated GFR-MDRD 61
--- NOTE | 2017-06-21 08:38 | PRG ---
DATE OF SERVICE: 06/21/2017 SERVICE: Pulmonary Medicine. INTERVAL HISTORY: The patient is doing really quite well from a respiratory standpoint. She denies any shortness of breath or chest discomfort. She continues to have abdominal discomfort, which is appropriate. She has been able to get up out of bed into a chair twice daily. Otherwise, there has been no significant change in her condition. PHYSICAL EXAMINATION: VITAL SIGNS: Afebrile, pulse 98, blood pressure 144/59, respirations 21, saturation 95% on 2 liters nasal cannula. GENERAL: Patient is awake, alert, in no apparent distress. LUNGS: Excellent air entry. There are crackles present bibasilarly. No prolonged expiratory phase or wheezing is appreciated. HEART: Normal rate and regular. ABDOMEN: Soft, nontender, nondistended, bowel sounds positive. MUSCULOSKELETAL: No cyanosis or clubbing. There is 1+ pitting in the bilateral lower extremities. GENITOURINARY: No Mclaughlin. NEUROLOGIC: Grossly nonfocal. LABORATORY DATA: WBC 10.5, hemoglobin 11.1, platelets 173,000 and rebounding. INR 1.0. Basic meta bolic profile is completely unremarkable. Chloride 110, BUN 24. Creatinine has trended downward to 1.03. ASSESSMENT: 1. Acute hypoxic respiratory failure, stable. 2. Atelectasis of the left lower lobe. 3. Severe sepsis, improving. 4. Small-bowel obstruction and ischemic gut, status post laparotomy with small bowel resection. 5. Peritonitis, improving. 6. Asthma without acute exacerbation. 7. Deconditioning. 8. Debility advanced. 9. Obstructive sleep apnea, mild. PLAN: We will continue supportive care including antibiotics. We will work on mobilizing the patie nt as much as tolerated over the next 24-48 hours. As soon as she can tolerate p.o., her home rate control medications will be resumed. She will remain in the ICU if she is a little bit weak. If agapito martinez is doing well by the afternoon, she can go to the IMCU. Regardless of where she ends up, I will c ontinue to follow.
[2017-06-21] MEDS: Pantoprazole 40 MG VIAL IVP SCH (08:39)
[2017-06-21] MEDS: Morphine PF 1 MG/ML SYR IVP PRN ×3 (08:39→21:29)
[2017-06-21] MEDS: Metoprolol Tartrate 5 MG/5 ML VIAL IVP PRN (11:30)
[2017-06-21 12:54] LABS: Oxyhemoglobin 97.2 % (94.0-97.0); Sodium 140 mmol/L (135-148)
[2017-06-21 12:55] LABS: Mode OR ABG; Vent YES
--- NOTE | 2017-06-21 13:12 | PDOC.PN ---
- Subjective Encounter Start Date: 06/21/17 Encounter Start Time: 07:15 Patient seen and examined. No new complaints. No overnight events - Objective MAR Reviewed: Yes Vital Signs & Weight: Vital Signs (12 hours) Temp Pulse Resp Pulse Ox 06/21/17 12:00 98.9 F 06/21/17 07:54 98.2 F 98 21 H 95 06/21/17 07:01 98 21 H 94 L 06/21/17 07:00 98.2 F 06/21/17 04:00 99.0 F Most Recent Monitor Data Heart Rate from ECG 98 NIBP 182/51 NIBP BP-Mean 103 Respiration from ECG 20 SpO2 93 I&O: 06/20/17 06/21/17 06/22/17 06:59 06:59 06:59 Intake Total 3247 3541 Output Total 1675 2400 1390 Balance 1572 1141 -1390 Result Diagrams: 06/21/17 07:10 06/21/17 07:10 EKG Reviewed by me: Yes (nsr) Phys Exam - Physical Examination Constitutional: NAD HEENT: PERRLA, moist MMs, sclera anicteric Neck: no JVD, supple NG tube+ Respiratory: no wheezing, no rales, no rhonchi Cardiovascular: RRR, no significant murmur, no rub Gastrointestinal: soft, non-tender, no distention surgical site clean Musculoskeletal: no edema, pulses present Neurological: non-focal, normal sensation Lymphatic: no nodes Psychiatric: normal affect Skin: no rash, normal turgor Dx/Plan (1) Acute kidney failure Status: Resolved (2) Encephalopathy acute Code(s): G93.40 - ENCEPHALOPATHY, UNSPECIFIED Status: Resolved (3) Hypotension Status: Resolved (4) SBO (small bowel obstruction) Code(s): K56.609 - UNSP INTESTNL OBST, UNSP TO PARTIAL VERSUS COMPLETE OBST Status: Acute Comment: s/p laparotomy, small bowel resection (5) Sepsis Code(s): A41.9 - SEPSIS, UNSPECIFIED ORGANISM Status: Acute (6) Anxiety and depression Code(s): F41.9 - ANXIETY DISORDER, UNSPECIFIED; F32.9 - MAJOR DEPRESSIVE DISORDER, SINGLE EPISODE, UNSPECIFIED Status: Chronic (7) Asthma Code(s): J45.909 - UNSPECIFIED ASTHMA, UNCOMPLICATED Status: Chronic (8) GERD (gastroesophageal reflux disease) Code(s): K21.9 - GASTRO-ESOPHAGEAL REFLUX DISEASE WITHOUT ESOPHAGITIS Status: Chronic (9) HLD (hyperlipidemia) Code(s): E78.5 - HYPERLIPIDEMIA, UNSPECIFIED Status: Chronic Qualifiers: Hyperlipidemia type: unspecified Qualified Code(s): E78.5 - Hyperlipidemia , unspecified (10) HTN (hypertension) Code(s): I10 - ESSENTIAL (PRIMARY) HYPERTENSION Status: Chronic Qualifiers: (11) Morbid obesity with BMI of 40.0-44.9, adult Code(s): E66.01 - MORBID (SEVERE) OBESITY DUE TO EXCESS CALORIES; Z68.41 - BODY MASS INDEX (BMI) 40.0-44.9, ADULT Status: Chronic (12) Acute abdomen Code(s): R10.0 - ACUTE ABDOMEN Status: Acute (13) Lactic acidosis Code(s): E87.2 - ACIDOSIS Status: Resolved (14) Peritonitis Code(s): K65.9 - PERITONITIS, UNSPECIFIED Status: Acute (15) Sepsis with acute organ dysfunction Code(s): A41.9 - SEPSIS, UNSPECIFIED ORGANISM; R65.20 - SEVERE SEPSIS WITHOUT SEPTIC SHOCK Status: Acute (16) Left lower lobe pneumonia Code(s): J18.1 - LOBAR PNEUMONIA, UNSPECIFIED ORGANISM Status: Acute (17) Transaminitis Code(s): R74.0 - NONSPEC ELEV OF LEVELS OF TRANSAMNS & LACTIC ACID DEHYDRGNSE Status: Acute - Plan cont current plan of care, continue antibiotics, incentive spirometry * continue meropenam * medication reviewed as below * symptomatic treatment * ng tube with LIS * await GI function to return * pt is improving. Review of Systems - Review of Systems Other: not reliable due to dementia - Medications/Allergies Allergies/Adverse Reactions: Allergies Allergy/AdvReac Type Severity Reaction Status Date / Time Penicillins Allergy rash--"been Verified 03/24/17 23:23 a long time" Medications: Current Medications Albuterol Sulfate (Proventil Hfa) 2 puff INH Q6H PRN PRN Reason: SOB &/or Wheezing Albuterol/Ipratropium (Duoneb) 3 ml NEB [id number] [facility] Last Admin: 06/21/17 07:01 Dose: 3 ml Enoxaparin Sodium (Lovenox) 40 mg SC 2100 [facility] Meropenem 1 gm/ Device 50 mls @ 100 mls/hr IVPB Q8HR [facility] Last Admin: 06/21/17 05:37 Dose: 50 mls Potassium Chloride/Sodium Chloride (1/2 Ns W/Kcl 20 Meq) 1,000 mls @ 75 mls/hr IV .[id number] [facility] Last Admin: 06/21/17 11:28 Dose: 1,000 mls Metoprolol Tartrate (Lopressor) 5 mg IVP Q6H PRN PRN Reason: HR>110 Last Admin: 06/21/17 11:30 Dose: 5 mg Mometasone Furoate/Formoterol Fumar (Dulera 200 Mcg/5 Mcg Inhaler) 2 puff INH BID-RT [facility] Last Admin: 06/21/17 07:02 Dose: 2 puff Morphine Sulfate (Duramorph) 2 mg IVP Q2H PRN PRN Reason: Mild-Moderate Pain (1-5) Last Admin: 06/21/17 08:39 Dose: 2 mg Pantoprazole Sodium (Protonix) [address] [facility] Last Admin: 06/21/17 08:39 Dose: 40 mg
[2017-06-21 14:18] LABS: #Basophils 0.1 thou/uL (0.0-0.2); #Eosinphils 0.1 thou/uL (0.0-0.7); #Lymphocytes 2.2 thou/uL (1.20-3.40); #Monocytes 0.7 thou/uL (0.11-0.59); %Basophils 0.6 % (0.0-1.0); %Eosinophils 0.6 % (0.0-10.0); %Lymphocytes 20.2 % (21.0-51.0); %Monocytes 6.2 % (0.0-10.0); Hematocrit 34.4 % (36.0-47.0); Mean Platelet Volume 6.9 fL (7.4-10.4); Red Blood Cell (RBC) Count 3.66 mill/uL (4.20-5.40)
[2017-06-21 14:26] LABS: PTT 38.9 SEC (22.9-36.1); Prothrombin Time 15.4 SEC (12.0-14.7)
[2017-06-21 15:08] LABS: ALT (SGPT) 131 U/L (8-55); AST (SGOT) 77 U/L (5-34); Alkaline Phosphatase 80 U/L (40-150); Anion Gap 17 mmol/L (10-20); BUN (Urea Nitrogen) 21 mg/dL (9.8-20.1); Bilirubin, Total 0.4 mg/dL (0.2-1.2); Calc. Creatinine Clearance 73 mL/min (70-130); Calcium 8.7 mg/dL (7.8-10.44); Carbon Dioxide 18 mmol/L (23-31); Chloride 110 mmol/L (98-107); Cholesterol 154 mg/dl (< 200 Desired); Estimated GFR-MDRD 77; Globulin 2.4 g/dL (2.4-3.5); LDL Cholesterol, Calculated 96 mg/dL; Magnesium 1.9 mg/dL (1.6-2.6); Protein, Total 5.3 g/dL (6.0-8.3)
[2017-06-21] MEDS: cloNIDine 0.1mg/24 Hour PATCH TD SCH (16:04)
[2017-06-21] MEDS: Labetalol HCl 100 MG/20 ML VIAL SLOW IVP PRN (19:28)
[2017-06-21] MEDS: Enoxaparin Sodium 40 MG/0.4 ML SYRINGE SC SCH (21:29)
[2017-06-21] MEDS: Multivitamins, Adult 10 ML, TRACE ELEMENT CONCENTRATE 1 ML in D30W-AA 10% with Lytes 2,... IV SCH (22:00)
[2017-06-22] MEDS: MEROPENEM 1 GM/50 ML 1 GM in Premix Bag 1 BAG IVPB SCH ×3 (05:15→22:23)
[2017-06-22 06:05] LABS: #Eosinphils 0.1 thou/uL (0.0-0.7); #Lymphocytes 2.3 thou/uL (1.20-3.40); #Monocytes 0.6 thou/uL (0.11-0.59); #Neutrophils 7.3 thou/uL (1.40-6.50); %Basophils 0.2 % (0.0-1.0); %Eosinophils 0.9 % (0.0-10.0); %Lymphocytes 22.1 % (21.0-51.0); %Monocytes 5.5 % (0.0-10.0); Hematocrit 34.1 % (36.0-47.0); Mean Platelet Volume 7.2 fL (7.4-10.4); Red Blood Cell (RBC) Count 3.63 mill/uL (4.20-5.40); White Blood Cell (WBC) Count 10.2 thou/uL (4.8-10.8)
[2017-06-22 06:29] LABS: Anion Gap 10 mmol/L (10-20); BUN (Urea Nitrogen) 18 mg/dL (9.8-20.1); Calc. Creatinine Clearance 80 mL/min (70-130); Calcium 9.3 mg/dL (7.8-10.44); Carbon Dioxide 27 mmol/L (23-31); Chloride 106 mmol/L (98-107); Estimated GFR-MDRD 85; Magnesium 1.7 mg/dL (1.6-2.6)
[2017-06-22] MEDS: Labetalol HCl 100 MG/20 ML VIAL SLOW IVP PRN (07:12)
[2017-06-22] MEDS: Pantoprazole 40 MG VIAL IVP SCH (07:19)
[2017-06-22] MEDS: Morphine PF 1 MG/ML SYR IVP PRN (07:20)
[2017-06-22] MEDS: Mometasone/Formoterol 120 PUFF INHALER INH SCH ×2 (07:41→19:16)
[2017-06-22] MEDS ORDERED: Sodium Phosphate 15 MMOL in Sodium Chloride 0.9% 250 ML 250 ML IVPB SCH (07:45)
[2017-06-22] MEDS: Labetalol HCl 100 MG/20 ML VIAL SLOW IVP SCH ×4 (07:55→20:57)
[2017-06-22] MEDS: 1/2 NS w/KCL 20 mEq 1,000 ML IV SCH (07:58)
--- NOTE | 2017-06-22 11:28 | PDOC.PN ---
- Subjective Encounter Start Date: 06/22/17 Encounter Start Time: 08:15 Patient seen and examined. seen in CCU, hypertensive, No overnight events - Objective MAR Reviewed: Yes Vital Signs & Weight: Vital Signs (12 hours) Temp Pulse Resp BP Pulse Ox 06/22/17 07:55 89 06/22/17 07:42 99 06/22/17 07:38 89 17 99 06/22/17 07:30 98.4 F 103 H 17 97 06/22/17 07:12 103 H 186/72 H 06/22/17 07:00 98.4 F 06/22/17 04:00 98.5 F 06/22/17 01:06 96 06/22/17 00:00 98.1 F Most Recent Monitor Data Heart Rate from ECG 90 NIBP 171/56 NIBP BP-Mean 97 Respiration from ECG 34 SpO2 91 I&O: 06/21/17 06/22/17 06/23/17 06:59 06:59 06:59 Intake Total 3541 2548 Output Total 2400 4500 600 Balance 1141 -1952 -600 Result Diagrams: 06/22/17 05:57 06/22/17 05:57 EKG Reviewed by me: Yes (sinus tachycardia) Phys Exam - Physical Examination Constitutional: NAD HEENT: PERRLA, moist MMs, sclera anicteric NG tube with LIS Neck: no JVD, supple Respiratory: no wheezing, no rales, no rhonchi reduced air entry at base Cardiovascular: RRR, no significant murmur, no rub Gastrointestinal: soft surgical site with dressing Musculoskeletal: no edema, pulses present aguilar+ Neurological: non-focal, normal sensation Lymphatic: no nodes Psychiatric: normal affect Skin: no rash, normal turgor Dx/Plan (1) Acute kidney failure Status: Resolved (2) Encephalopathy acute Code(s): G93.40 - ENCEPHALOPATHY, UNSPECIFIED Status: Resolved (3) Hypotension Status: Resolved (4) SBO (small bowel obstruction) Code(s): K56.609 - UNSP INTESTNL OBST, UNSP TO PARTIAL VERSUS COMPLETE OBST Status: Acute Comment: s/p laparotomy, small bowel resection (5) Sepsis Code(s): A41.9 - SEPSIS, UNSPECIFIED ORGANISM Status: Acute (6) Anxiety and depression Code(s): F41.9 - ANXIETY DISORDER, UNSPECIFIED; F32.9 - MAJOR DEPRESSIVE DISORDER, SINGLE EPISODE, UNSPECIFIED Status: Chronic (7) Asthma Code(s): J45.909 - UNSPECIFIED ASTHMA, UNCOMPLICATED Status: Chronic (8) GERD (gastroesophageal reflux disease) Code(s): K21.9 - GASTRO-ESOPHAGEAL REFLUX DISEASE WITHOUT ESOPHAGITIS Status: Chronic (9) HLD (hyperlipidemia) Code(s): E78.5 - HYPERLIPIDEMIA, UNSPECIFIED Status: Chronic Qualifiers: Hyperlipidemia type: unspecified Qualified Code(s): E78.5 - Hyperlipidemia , unspecified (10) HTN (hypertension) Code(s): I10 - ESSENTIAL (PRIMARY) HYPERTENSION Status: Chronic Qualifiers: (11) Morbid obesity with BMI of 40.0-44.9, adult Code(s): E66.01 - MORBID (SEVERE) OBESITY DUE TO EXCESS CALORIES; Z68.41 - BODY MASS INDEX (BMI) 40.0-44.9, ADULT Status: Chronic (12) Acute abdomen Code(s): R10.0 - ACUTE ABDOMEN Status: Acute (13) Lactic acidosis Code(s): E87.2 - ACIDOSIS Status: Resolved (14) Peritonitis Code(s): K65.9 - PERITONITIS, UNSPECIFIED Status: Acute (15) Sepsis with acute organ dysfunction Code(s): A41.9 - SEPSIS, UNSPECIFIED ORGANISM; R65.20 - SEVERE SEPSIS WITHOUT SEPTIC SHOCK Status: Acute (16) Left lower lobe pneumonia Code(s): J18.1 - LOBAR PNEUMONIA, UNSPECIFIED ORGANISM Status: Acute (17) Transaminitis Code(s): R74.0 - NONSPEC ELEV OF LEVELS OF TRANSAMNS & LACTIC ACID DEHYDRGNSE Status: Acute - Plan cont current plan of care, continue antibiotics * will add labetolol IV q 3 hr * continue catapress patch * medication reviewed as below * symptomatic treatment * continue meropenam * await GI function to return * OK to transfer to surgical floor * stable and improving Review of Systems - Review of Systems Eyes: negative: Pain, Vision Change, Conjunctivae Inflammation, Eyelid Inflammation, Redness, Other ENT: negative: Ear Pain, Ear Discharge, Nose Pain, Nose Discharge, Nose Congestion, Mouth Pain, Mouth Swelling, Throat Pain, Throat Swelling, Other Respiratory: negative: Cough, Dry, Shortness of Breath, Hemoptysis, SOB with Excertion, Pleuritic Pain, Sputum, Wheezing Cardiovascular: negative: Chest Pain, Palpitations, Orthopnea, Paroxysmal Noc. Dyspnea, Edema, Light Headedness, Other Gastrointestinal: Nausea, Abdominal Pain. negative: Vomiting, Diarrhea, Constipation, Melena, Hematochezia, Other Genitourinary: negative: Dysuria, Frequency, Incontinence, Hematuria, Retention , Other Musculoskeletal: negative: Neck Pain, Shoulder Pain, Arm Pain, Back Pain, Hand Pain, Leg Pain, Foot Pain, Other - Medications/Allergies Allergies/Adverse Reactions: Allergies Allergy/AdvReac Type Severity Reaction Status Date / Time Penicillins Allergy rash--"been Verified 03/24/17 23:23 a long time" Medications: Current Medications Albuterol Sulfate (Proventil Hfa) 2 puff INH Q6H PRN PRN Reason: SOB &/or Wheezing Albuterol/Ipratropium (Duoneb) 3 ml NEB [id number] [facility] Last Admin: 06/22/17 07:38 Dose: 3 ml Clonidine (Sobdeqtp-Atk-2 Patch) 0.1 mg TD Q7D [facility] Last Admin: 06/21/17 16:04 Dose: 0.1 mg Enoxaparin Sodium (Lovenox) 40 mg SC 2100 [facility] Last Admin: 06/21/17 21:29 Dose: 40 mg Meropenem 1 gm/ Device 50 mls @ 100 mls/hr IVPB Q8HR [facility] Last Admin: 06/22/17 05:15 Dose: 50 mls Potassium Chloride/Sodium Chloride (1/2 Ns W/Kcl 20 Meq) 1,000 mls @ 75 mls/hr IV .[id number] [facility] Last Admin: 06/22/17 07:58 Dose: Not Given Multivitamins 10 ml/ TRACE ELEMENT CONCENTRATE 1 ml/Amino Acids/Electrolytes/ Fat Emulsion Intravenous 2,261 mls @ 94.208 mls/hr IV 2200 [facility] Last Admin: 06/21/17 22:00 Dose: 2,261 mls Labetalol HCl (Normodyne) 10 mg SLOW IVP Q4H [facility] Last Admin: 06/22/17 07:55 Dose: Not Given Metoprolol Tartrate (Lopressor) 5 mg IVP Q6H PRN PRN Reason: HR>110 Last Admin: 11/13/17 11:30 Dose: 5 mg Mometasone Furoate/Formoterol Fumar (Dulera 200 Mcg/5 Mcg Inhaler) 2 puff INH BID-RT [facility] Last Admin: 06/22/17 07:41 Dose: 2 puff Morphine Sulfate (Duramorph) 2 mg IVP Q2H PRN PRN Reason: Mild-Moderate Pain (1-5) Last Admin: 06/22/17 07:20 Dose: 2 mg Pantoprazole Sodium (Protonix) 40 mg IVP DAILY [facility] Last Admin: 06/22/17 07:19 Dose: 40 mg
--- NOTE | 2017-06-22 18:19 | PRG ---
DATE OF SERVICE: 06/22/2017 SERVICE: Pulmonary Medicine. INTERVAL HISTORY: The patient is doing okay from a respiratory standpoint. She denies any current fevers, chills, nausea, vomiting or diarrhea. She has not had any gas or bowel movements to date. Her NG tube remains on suction. Her abdominal discomfort is actually improving a little bit, but agapito martinez still has some tenderness. She is in a chair right now, but a little listless. She is extraordin arily fatigued with the amount of exertion we will be requiring of her. PHYSICAL EXAMINATION: VITAL SIGNS: Afebrile with a T-max of 99.5. Pulse 96, blood pressure 168/74, respirations 14, satu ration 96% on 2 liters nasal cannula. GENERAL: The patient is awake and alert, in no apparent distress. LUNGS: Decent air entry. There is no wheezing, rhonchi, or crackles. There is no prolonged expira tory phase present. HEART: Normal rate, regular. ABDOMEN: Soft. Tender to palpation throughout. No rebound or guarding is evident. MUSCULOSKELETAL: No cyanosis or clubbing. There is trace pitting in the bilateral lower extremitie s. NEUROLOGIC: Grossly nonfocal. LABORATORY DATA: WBC 10.2, hemoglobin 10.9, platelets 206,000. INR 1.3. Basic metabolic profile w as essentially unremarkable except for phosphorus of 2.0. ASSESSMENT: 1. Acute hypoxic respiratory failure, stable. 2. Atelectasis of the left lower lobe. 3. Severe sepsis, improving. 4. Small bowel obstruction and ischemic gut, status post laparotomy with small bowel resection. 5. Peritonitis. 6. Asthma without acute exacerbation. 7. Deconditioning. 8. Debility, advanced. 9. Obstructive sleep apnea, mild. PLAN: We will continue supportive care. We will watch her ins and outs very closely and we will ad just the total fluid rate as needed. We will continue focusing efforts on mobilizing the patient as much as tolerated. She was quite debilitated before the surgery and my suspicion is, it will take every bit of 2-3 weeks to regain some of her strength. Skilled options should be considered on disc harge from the hospital which were not close to yet.
[2017-06-22] MEDS: Enoxaparin Sodium 40 MG/0.4 ML SYRINGE SC SCH (20:59)
[2017-06-22] MEDS: Multivitamins, Adult 10 ML, TRACE ELEMENT CONCENTRATE 1 ML in D30W-AA 10% with Lytes 2,... IV SCH (22:23)
[2017-06-23] MEDS: Labetalol HCl 100 MG/20 ML VIAL SLOW IVP SCH ×7 (00:24→23:32)
[2017-06-23] MEDS: 1/2 NS w/KCL 20 mEq 1,000 ML IV SCH ×2 (00:25→15:13)
[2017-06-23 05:33] LABS: Magnesium 1.7 mg/dL (1.6-2.6); Phosphorus 2.4 mg/dL (2.3-4.7)
[2017-06-23] MEDS: MEROPENEM 1 GM/50 ML 1 GM in Premix Bag 1 BAG IVPB SCH ×3 (06:07→22:05)
[2017-06-23] MEDS: Mometasone/Formoterol 120 PUFF INHALER INH SCH ×2 (06:29→19:04)
--- NOTE | 2017-06-23 07:39 | PDOC.PN ---
- Subjective Encounter Start Date: 06/23/17 Encounter Start Time: 07:37 Patient seen and examined. No new complaints. No overnight events - Objective MAR Reviewed: Yes Vital Signs & Weight: Vital Signs (12 hours) Temp Pulse Resp BP BP Pulse Ox 06/23/17 06:30 100 06/23/17 06:29 92 16 100 06/23/17 06:28 92 16 100 06/23/17 04:25 98.8 F 93 20 148/72 H 148/72 H 98 06/23/17 00:49 95 16 99 06/23/17 00:24 99 F 98 20 168/86 H 168/86 H 99 06/22/17 20:57 99.3 F 100 18 156/75 H 06/22/17 20:00 99.3 F 100 18 156/95 H 96 Weight Admit Weight 225 lb Weight 225 lb Most Recent Monitor Data Heart Rate from ECG 90 NIBP 171/56 NIBP BP-Mean 97 Respiration from ECG 34 SpO2 91 I&O: 06/22/17 06/23/17 06/24/17 06:59 06:59 06:59 Intake Total 2548 1349 1488 Output Total 4500 1600 1550 [facility] -1950 -251 -62 Result Diagrams: 06/22/17 05:57 06/22/17 05:57 Phys Exam - Physical Examination Constitutional: NAD HEENT: PERRLA, moist MMs, sclera anicteric Neck: no JVD, supple Respiratory: no wheezing, no rales, no rhonchi Cardiovascular: RRR, no significant murmur, no rub Gastrointestinal: soft surgical site clean Musculoskeletal: no edema, pulses present Neurological: non-focal, normal sensation Lymphatic: no nodes Psychiatric: normal affect Skin: no rash, normal turgor Dx/Plan (1) Acute kidney failure Status: Resolved (2) Encephalopathy acute Code(s): G93.40 - ENCEPHALOPATHY, UNSPECIFIED Status: Resolved (3) Hypotension Status: Resolved (4) SBO (small bowel obstruction) Code(s): K56.609 - UNSP INTESTNL OBST, UNSP TO PARTIAL VERSUS COMPLETE OBST Status: Acute Comment: s/p laparotomy, small bowel resection (5) Sepsis Code(s): A41.9 - SEPSIS, UNSPECIFIED ORGANISM Status: Acute (6) Anxiety and depression Code(s): F41.9 - ANXIETY DISORDER, UNSPECIFIED; F32.9 - MAJOR DEPRESSIVE DISORDER, SINGLE EPISODE, UNSPECIFIED Status: Chronic (7) Asthma Code(s): J45.909 - UNSPECIFIED ASTHMA, UNCOMPLICATED Status: Chronic (8) GERD (gastroesophageal reflux disease) Code(s): K21.9 - GASTRO-ESOPHAGEAL REFLUX DISEASE WITHOUT ESOPHAGITIS Status: Chronic (9) HLD (hyperlipidemia) Code(s): E78.5 - HYPERLIPIDEMIA, UNSPECIFIED Status: Chronic Qualifiers: Hyperlipidemia type: unspecified Qualified Code(s): E78.5 - Hyperlipidemia , unspecified (10) HTN (hypertension) Code(s): I10 - ESSENTIAL (PRIMARY) HYPERTENSION Status: Chronic Qualifiers: (11) Morbid obesity with BMI of 40.0-44.9, adult Code(s): E66.01 - MORBID (SEVERE) OBESITY DUE TO EXCESS CALORIES; Z68.41 - BODY MASS INDEX (BMI) 40.0-44.9, ADULT Status: Chronic (12) Acute abdomen Code(s): R10.0 - ACUTE ABDOMEN Status: Acute (13) Lactic acidosis Code(s): E87.2 - ACIDOSIS Status: Resolved (14) Peritonitis Code(s): K65.9 - PERITONITIS, UNSPECIFIED Status: Acute (15) Sepsis with acute organ dysfunction Code(s): A41.9 - SEPSIS, UNSPECIFIED ORGANISM; R65.20 - SEVERE SEPSIS WITHOUT SEPTIC SHOCK Status: Acute (16) Left lower lobe pneumonia Code(s): J18.1 - LOBAR PNEUMONIA, UNSPECIFIED ORGANISM Status: Acute (17) Transaminitis Code(s): R74.0 - NONSPEC ELEV OF LEVELS OF TRANSAMNS & LACTIC ACID DEHYDRGNSE Status: Acute (18) Ileus, postoperative Code(s): K91.89 - OTH POSTPROCEDURAL COMPLICATIONS AND DISORDERS OF DGSTV SYS; K56.7 - ILEUS, UNSPECIFIED Status: Acute - Plan cont current plan of care, aguilar catheter, continue antibiotics, respiratory therapy, incentive spirometry, out of bed/ambulate * continue TPN * continue meropenam * await Gi function to return * continue post operative care. * BP better controlled * medication reviewed as below * symptomatic treatment Review of Systems - Review of Systems Constitutional: negative: Fever, Chills, Sweats, Weakness, Malaise, Other ENT: negative: Ear Pain, Ear Discharge, Nose Pain, Nose Discharge, Nose Congestion, Mouth Pain, Mouth Swelling, Throat Pain, Throat Swelling, Other Respiratory: negative: Cough, Dry, Shortness of Breath, Hemoptysis, SOB with Excertion, Pleuritic Pain, Sputum, Wheezing Cardiovascular: negative: Chest Pain, Palpitations, Orthopnea, Paroxysmal Noc. Dyspnea, Edema, Light Headedness, Other Gastrointestinal: negative: Nausea, Vomiting, Abdominal Pain, Diarrhea, Constipation, Melena, Hematochezia, Other Genitourinary: negative: Dysuria, Frequency, Incontinence, Hematuria, Retention , Other Musculoskeletal: negative: Neck Pain, Shoulder Pain, Arm Pain, Back Pain, Hand Pain, Leg Pain, Foot Pain, Other - Medications/Allergies Allergies/Adverse Reactions: Allergies Allergy/AdvReac Type Severity Reaction Status Date / Time Penicillins Allergy rash--"been Verified 03/24/17 23:23 a long time" Medications: Current Medications Albuterol Sulfate (Proventil Hfa) 2 puff INH Q6H PRN PRN Reason: SOB &/or Wheezing Albuterol/Ipratropium (Duoneb) 3 ml NEB [id number] [facility] Last Admin: 06/23/17 06:28 Dose: 3 ml Clonidine (Sjyzzvnh-Vnw-0 Patch) 0.1 mg TD Q7D [facility] Last Admin: 06/21/17 16:04 Dose: 0.1 mg Enoxaparin Sodium (Lovenox) 40 mg SC 2100 [facility] Last Admin: 06/22/17 20:59 Dose: 40 mg Meropenem 1 gm/ Device 50 mls @ 100 mls/hr IVPB Q8HR [facility] Last Admin: 06/23/17 06:07 Dose: 50 mls Potassium Chloride/Sodium Chloride (1/2 Ns W/Kcl 20 Meq) 1,000 mls @ 75 mls/hr IV .[id number] [facility] Last Admin: 06/23/17 00:25 Dose: Not Given Multivitamins 10 ml/ TRACE ELEMENT CONCENTRATE 1 ml/Amino Acids/Electrolytes/ Fat Emulsion Intravenous 2,261 mls @ 94.208 mls/hr IV 2200 [facility] Last Admin: 06/22/17 22:23 Dose: 2,261 mls Labetalol HCl (Normodyne) 10 mg SLOW IVP Q4H [facility] Last Admin: 06/23/17 04:25 Dose: 10 mg Metoprolol Tartrate (Lopressor) 5 mg IVP Q6H PRN PRN Reason: HR>110 Last Admin: 06/21/17 11:30 Dose: 5 mg Mometasone Furoate/Formoterol Fumar (Dulera 200 Mcg/5 Mcg Inhaler) 2 puff INH BID-RT [facility] Last Admin: 06/23/17 06:29 Dose: 2 puff Morphine Sulfate (Duramorph) 2 mg IVP Q2H PRN PRN Reason: Mild-Moderate Pain (1-5) Last Admin: 06/22/17 07:20 Dose: 2 mg Pantoprazole Sodium (Protonix) 40 mg IVP DAILY [facility] Last Admin: 06/22/17 07:19 Dose: 40 mg
[2017-06-23] MEDS: Pantoprazole 40 MG VIAL IVP SCH (08:12)
[2017-06-23] MEDS: Morphine PF 1 MG/ML SYR IVP PRN (09:15)
[2017-06-23] MEDS ORDERED: Bisacodyl 10 MG SUPP ONE (11:11)
[2017-06-23] MEDS ORDERED: Bisacodyl 10 MG SUPP PR SCH (12:15)
[2017-06-23] MEDS: Enoxaparin Sodium 40 MG/0.4 ML SYRINGE SC SCH (20:12)
[2017-06-23] MEDS: Multivitamins, Adult 10 ML, TRACE ELEMENT CONCENTRATE 1 ML in D30W-AA 10% with Lytes 2,... IV SCH (22:05)
[2017-06-24] MEDS: Labetalol HCl 100 MG/20 ML VIAL SLOW IVP SCH ×5 (03:52→19:43)
[2017-06-24] MEDS: 1/2 NS w/KCL 20 mEq 1,000 ML IV SCH ×3 (03:56→22:52)
[2017-06-24] MEDS: MEROPENEM 1 GM/50 ML 1 GM in Premix Bag 1 BAG IVPB SCH ×3 (05:06→22:43)
[2017-06-24 05:54] LABS: Magnesium 1.5 mg/dL (1.6-2.6); Phosphorus 2.7 mg/dL (2.3-4.7)
[2017-06-24] MEDS: Mometasone/Formoterol 120 PUFF INHALER INH SCH ×2 (06:54→19:04)
[2017-06-24] MEDS: Pantoprazole 40 MG VIAL IVP SCH (10:33)
[2017-06-24 11:11] LABS: #Eosinphils 0.1 thou/uL (0.0-0.7); #Lymphocytes 2.7 thou/uL (1.20-3.40); #Monocytes 0.9 thou/uL (0.11-0.59); #Neutrophils 6.3 thou/uL (1.40-6.50); %Eosinophils 1.3 % (0.0-10.0); %Lymphocytes 27.3 % (21.0-51.0); %Monocytes 8.5 % (0.0-10.0); Hematocrit 34.4 % (36.0-47.0); Mean Platelet Volume 7.5 fL (7.4-10.4); Red Blood Cell (RBC) Count 3.71 mill/uL (4.20-5.40); White Blood Cell (WBC) Count 9.9 thou/uL (4.8-10.8)
[2017-06-24 11:52] LABS: Anion Gap 11 mmol/L (10-20); BUN (Urea Nitrogen) 23 mg/dL (9.8-20.1); Calc. Creatinine Clearance 96 mL/min (70-130); Calcium 9.1 mg/dL (7.8-10.44); Carbon Dioxide 28 mmol/L (23-31); Chloride 102 mmol/L (98-107); Estimated GFR-MDRD Greater than 90
[2017-06-24] MEDS: Morphine PF 1 MG/ML SYR IVP PRN (12:56)
--- NOTE | 2017-06-24 13:02 | PRG ---
DATE OF SERVICE: 06/23/2017 SERVICE: Pulmonary Medicine. INTERVAL HISTORY: The patient is doing great from a cardiovascular and respiratory standpoint. Her abdominal discomfort remains fairly remains pretty bad. She gets partial relief from her pain medica tions and is worse whenever she is moving. That being said, she is getting into a chair 3 times su y. Her strength is slowly starting to improve a little bit. She does not have much in the way of co ugh or sputum production. PHYSICAL EXAMINATION: VITAL SIGNS: Afebrile, pulse 88, blood pressure 135/65, respirations 24, saturation 98% on 2 liters nasal cannula. GENERAL: Patient is awake and alert, in no apparent distress. LUNGS: Excellent air entry with no prolonged expiratory phase. I do not appreciate wheezing, rhonch i or crackles. HEART: Normal rate, regular. ABDOMEN: Soft, nontender, nondistended. Bowel sounds positive. MUSCULOSKELETAL: No cyanosis or clubbing. No pitting in the bilateral lower extremities. NEUROLOGIC: Grossly nonfocal. LABORATORY DATA: Phosphorus and magnesium fall within normal limits. ASSESSMENT: 1. Acute hypoxic respiratory failure, resolving. 2. Atelectasis of the left lower lobe. 3. Severe sepsis, improving. 4. Small-bowel obstruction and ischemic gut, status post laparotomy with small bowel resection. 5. Peritonitis, improving. 6. Asthma without acute exacerbation. 7. Deconditioning. 8. Debility. 9. Obstructive sleep apnea, mild. PLAN: Pulmonary or Critical Care will continue to follow while the patient remains inhouse. She rem ains extraordinarily weak and is at high risk for decompensation in the perioperative period. We erika l continue focusing efforts on mobilizing the patient while her gut wakes up. If at any point, she h as recrudescence in her sepsis type profile, a repeat CT of the belly will be considered.
--- NOTE | 2017-06-24 17:09 | PDOC.PN ---
- Subjective Encounter Start Date: 06/24/17 Encounter Start Time: 17:08 Ms. Flores is seen today in follow-up for small bowel obstruction, and hypertension. She notes some abdominal pain she rates at about a 8/10. She denies any shortness of breath, and she denies chest pain. She has had a few liquid stools today. - Objective MAR Reviewed: Yes Vital Signs & Weight: Vital Signs (12 hours) Temp Pulse Pulse Resp BP BP BP 06/24/17 16:11 96 132/78 06/24/17 12:25 98.1 F 96 24 H 126/77 06/24/17 11:38 86 16 06/24/17 11:20 86 151/68 H 06/24/17 10:35 87 130/79 06/24/17 08:00 98.1 F 87 16 139/73 06/24/17 07:27 96 127/77 06/24/17 06:54 101 H 16 06/24/17 06:52 101 H 16 Pulse Ox Pulse Ox 06/24/17 16:11 06/24/17 12:25 100 06/24/17 11:38 98 06/24/17 11:20 99 06/24/17 10:35 06/24/17 08:00 99 06/24/17 07:27 06/24/17 06:54 98 06/24/17 06:52 98 Weight Admit Weight 225 lb Weight 225 lb Most Recent Monitor Data Heart Rate from ECG 90 NIBP 171/56 NIBP BP-Mean 97 Respiration from ECG 34 SpO2 91 I&O: 06/23/17 06/24/17 06/25/17 06:59 06:59 06:59 Intake Total 1349 4488 Output Total 1600 5450 Balance -807 -908 Result Diagrams: 06/24/17 10:16 06/24/17 10:16 Phys Exam - Physical Examination HEENT: PERRLA Respiratory: no wheezing, no rales, no rhonchi, clear to auscultation bilateral Cardiovascular: RRR, no significant murmur Gastrointestinal: soft, positive bowel sounds + diffuse tenderness no rebound or guarding Musculoskeletal: no edema Dx/Plan (1) SBO (small bowel obstruction) Code(s): K56.609 - UNSP INTESTNL OBST, UNSP TO PARTIAL VERSUS COMPLETE OBST Status: Acute Comment: s/p laparotomy, small bowel resection (2) Sepsis Code(s): A41.9 - SEPSIS, UNSPECIFIED ORGANISM Status: Acute (3) HTN (hypertension) Code(s): I10 - ESSENTIAL (PRIMARY) HYPERTENSION Status: Chronic Qualifiers: (4) Morbid obesity with BMI of 40.0-44.9, adult Code(s): E66.01 - MORBID (SEVERE) OBESITY DUE TO EXCESS CALORIES; Z68.41 - BODY MASS INDEX (BMI) 40.0-44.9, ADULT Status: Chronic - Plan * Small Bowel Obstruction s/p small bowel resection- She is now on a clear liquid diet * Peritonitis and sepsis- improved- continue Meropenem * HTN- blood pressure is controlled * Deconditioning- continue to mobilize as tolerated. * Diarrhea- C. Diff screen has been ordered
[2017-06-24] MEDS: Enoxaparin Sodium 40 MG/0.4 ML SYRINGE SC SCH (19:45)
[2017-06-24] MEDS: Multivitamins, Adult 10 ML, TRACE ELEMENT CONCENTRATE 1 ML in D30W-AA 10% with Lytes 2,... IV SCH (22:43)
[2017-06-25] MEDS: Labetalol HCl 100 MG/20 ML VIAL SLOW IVP SCH ×5 (00:20→16:28)
[2017-06-25 04:58] LABS: ALT (SGPT) 40 U/L (8-55); AST (SGOT) 31 U/L (5-34); Alkaline Phosphatase 83 U/L (40-150); Anion Gap 7 mmol/L (10-20); BUN (Urea Nitrogen) 19 mg/dL (9.8-20.1); Bilirubin, Total 0.3 mg/dL (0.2-1.2); Calc. Creatinine Clearance 106 mL/min (70-130); Calcium 8.2 mg/dL (7.8-10.44); Carbon Dioxide 29 mmol/L (23-31); Chloride 105 mmol/L (98-107); Estimated GFR-MDRD Greater than 90; Globulin 2.5 g/dL (2.4-3.5); Magnesium 1.5 mg/dL (1.6-2.6); Phosphorus 2.6 mg/dL (2.3-4.7)
[2017-06-25] MEDS: MEROPENEM 1 GM/50 ML 1 GM in Premix Bag 1 BAG IVPB SCH (05:33)
[2017-06-25] MEDS: Mometasone/Formoterol 120 PUFF INHALER INH SCH ×2 (06:52→19:43)
[2017-06-25] MEDS: Pantoprazole 40 MG VIAL IVP SCH (08:14)
[2017-06-25] MEDS: 1/2 NS w/KCL 20 mEq 1,000 ML IV SCH (12:41)
[2017-06-25] MEDS: Meropenem 1 GM in Sodium Chloride 0.9% 100 ML IVPB SCH ×2 (13:54→21:01)
[2017-06-25] MEDS ORDERED: Magnesium 2 GM/NS 0.9% 100 ML 2 GM in Premix Bag 1 BAG IVPB SCH (14:45)
[2017-06-25] MEDS ORDERED: Furosemide 40 MG/4 ML VIAL SLOW IVP SCH (14:45)
--- NOTE | 2017-06-25 14:45 | PRG ---
DATE OF SERVICE: 06/25/2017 SERVICE: Pulmonary Medicine. INTERVAL HISTORY: The patient is doing fine from a respiratory standpoint. She denies any current f ever, chills, nausea, vomiting or chest discomfort. She has some significant abdominal discomfort wh enever she is moving around. She had multiple bowel movements today and yesterday. Otherwise, there has been no interval change to her condition. PHYSICAL EXAMINATION: VITAL SIGNS: Afebrile, pulse 97, blood pressure 133/67, respirations 16, saturation 100% on 2 liters nasal cannula. GENERAL: Patient is awake, alert, no apparent distress. LUNGS: Good air entry. There is no prolonged expiratory phase or wheezing. Crackles are present th roughout bilateral lung claire. HEART: Normal rate and regular. ABDOMEN: Soft, nontender, nondistended, bowel sounds positive. MUSCULOSKELETAL: No cyanosis or clubbing. There is diffuse 1+ pitting throughout. GENITOURINARY: Mclaughlin catheter in place. NEUROLOGIC: Grossly nonfocal. LABORATORY DATA: Basic metabolic profile is unremarkable. Magnesium is 1.5 and a little low. Liver function studies are otherwise unremarkable. ASSESSMENT: 1. Acute hypoxic respiratory failure, resolving. 2. Atelectasis of the left lower lobe. 3. Severe sepsis, improving. 4. Small-bowel obstruction and ischemic gut, status post laparotomy with small bowel resection. 5. Peritonitis. 6. Asthma without acute exacerbation. 7. Deconditioning. 8. Debility. 9. Obstructive sleep apnea, mild. PLAN: We will continue supportive care. She is getting a little bit volume overloaded. As such, I will provide her with one single dose of Lasix. This may need to be repeated through the weekend if clinically indicated. We will continue working on mobilizing the patient. Some of her motility agen ts will be interrupted and magnesium will be replaced. Critical care will follow, intermittently during this hospital stay. If she gets into trouble over t he , please notify Dr. Tolbert.
--- NOTE | 2017-06-25 18:09 | PDOC.PN ---
- Subjective Encounter Start Date: 06/25/17 Encounter Start Time: 18:07 Ms. Flores was seen today for follow-up of SBO. She says she still has some abdominal pain but it is improved. She was started on a solid diet. - Objective MAR Reviewed: Yes Vital Signs & Weight: Vital Signs (12 hours) Temp Pulse Resp BP BP Pulse Ox 06/25/17 17:37 98.4 F 91 16 123/71 98 06/25/17 16:28 96 135/81 06/25/17 12:39 90 16 99 06/25/17 12:00 98.6 F 97 16 133/67 100 06/25/17 08:25 98.2 F 106 H 16 06/25/17 08:00 98.2 F 106 H 16 142/82 H 95 06/25/17 06:52 91 16 100 06/25/17 06:50 91 16 100 Weight Admit Weight 225 lb Weight 225 lb Most Recent Monitor Data Heart Rate from ECG 90 NIBP 171/56 NIBP BP-Mean 97 Respiration from ECG 34 SpO2 91 I&O: 06/24/17 06/25/17 06/26/17 06:59 06:59 06:59 Intake Total 4488 2125 1680 Output Total 5450 1450 1350 Balance -962 675 330 Result Diagrams: 06/24/17 10:16 06/25/17 04:20 Additional Labs: Accuchecks 06/25/17 06/25/17 16:18 12:02 POC Glucose 112 H 111 H Phys Exam - Physical Examination HEENT: PERRLA Respiratory: no wheezing, no rales, no rhonchi, clear to auscultation bilateral Cardiovascular: RRR, no significant murmur Gastrointestinal: soft, positive bowel sounds + diffuse tenderness Musculoskeletal: edema present trace edema Dx/Plan (1) SBO (small bowel obstruction) Code(s): K56.609 - UNSP INTESTNL OBST, UNSP TO PARTIAL VERSUS COMPLETE OBST Status: Acute Comment: s/p laparotomy, small bowel resection (2) Sepsis Code(s): A41.9 - SEPSIS, UNSPECIFIED ORGANISM Status: Acute (3) HTN (hypertension) Code(s): I10 - ESSENTIAL (PRIMARY) HYPERTENSION Status: Chronic Qualifiers: (4) Morbid obesity with BMI of 40.0-44.9, adult Code(s): E66.01 - MORBID (SEVERE) OBESITY DUE TO EXCESS CALORIES; Z68.41 - BODY MASS INDEX (BMI) 40.0-44.9, ADULT Status: Chronic - Plan * SBO- patient has been advanced to a solid diet * HTN- blood pressure is stable- now that she is tolerating a solid diet, can re -start Coreg and Amlodipine, and discontinue Labetalol * DM- blood glucose is stable Peritonitis- stable- continue Meropenem * Continue to encourage mobilization, and incentive spirometry.
[2017-06-25] MEDS: Carvedilol 3.125 MG TAB PO SCH (18:55)
[2017-06-25] MEDS: Montelukast Sodium 10 mg Tablet PO SCH (20:30)
[2017-06-25] MEDS: Mirtazapine 15 MG TAB PO SCH (20:30)
[2017-06-25] MEDS: Enoxaparin Sodium 40 MG/0.4 ML SYRINGE SC SCH (20:31)
[2017-06-26 05:22] LABS: ALT (SGPT) 41 U/L (8-55); AST (SGOT) 33 U/L (5-34); Alkaline Phosphatase 110 U/L (40-150); Anion Gap 10 mmol/L (10-20); BUN (Urea Nitrogen) 16 mg/dL (9.8-20.1); Bilirubin, Total 0.4 mg/dL (0.2-1.2); Calc. Creatinine Clearance 92 mL/min (70-130); Calcium 8.8 mg/dL (7.8-10.44); Carbon Dioxide 31 mmol/L (23-31); Chloride 102 mmol/L (98-107); Estimated GFR-MDRD Greater than 90; Globulin 2.9 g/dL (2.4-3.5); Phosphorus 3.2 mg/dL (2.3-4.7); Protein, Total 5.6 g/dL (6.0-8.3)
[2017-06-26] MEDS: Meropenem 1 GM in Sodium Chloride 0.9% 100 ML IVPB SCH ×3 (06:18→21:02)
[2017-06-26] MEDS: Mometasone/Formoterol 120 PUFF INHALER INH SCH ×2 (06:55→18:20)
[2017-06-26] MEDS: Carvedilol 3.125 MG TAB PO SCH ×2 (08:18→16:06)
[2017-06-26] MEDS: Amlodipine 5 MG TAB PO SCH (08:19)
[2017-06-26] MEDS: Pantoprazole 40 MG VIAL IVP SCH (08:20)
[2017-06-26] MEDS: Citalopram 20 MG TAB PO SCH (08:20)
[2017-06-26 12:34] LABS: #Basophils 0.1 thou/uL (0.0-0.2); #Eosinphils 0.2 thou/uL (0.0-0.7); #Lymphocytes 2.5 thou/uL (1.20-3.40); #Monocytes 1.3 thou/uL (0.11-0.59); #Neutrophils 8.3 thou/uL (1.40-6.50); %Basophils 0.7 % (0.0-1.0); %Eosinophils 1.7 % (0.0-10.0); %Monocytes 10.6 % (0.0-10.0); Hematocrit 32.2 % (36.0-47.0); Mean Platelet Volume 7.7 fL (7.4-10.4); Red Blood Cell (RBC) Count 3.49 mill/uL (4.20-5.40); White Blood Cell (WBC) Count 12.4 thou/uL (4.8-10.8)
[2017-06-26] MEDS: Morphine PF 1 MG/ML SYR IVP PRN (12:34)
[2017-06-26 13:00] LABS: Troponin I Less than 0.010 ng/mL (< 0.028)
--- NOTE | 2017-06-26 13:06 | PRG ---
DATE OF SERVICE: 06/26/2017 SUBJECTIVE: This morning is awake, alert, still having pain, but no shortness of breath. PHYSICAL EXAMINATION: VITAL SIGNS: Sats are 98 on 2 liters, blood pressure 127/87, temperature 98. CHEST: Decreased breath sounds, no wheezing. CARDIAC: Normal S1 and S2. ABDOMEN: Soft, no masses. LABORATORY DATA: Electrolytes are normal. Her albumin is low. IMPRESSION: Status post lap peritonitis, obesity, deconditioning, and probably sleep apnea. PLAN: Continue supportive care, neb treatments and we will see as needed.
[2017-06-26] MEDS ORDERED: ISOVUE-370 76%-LOCM 1 ML ONE (14:04)
--- NOTE | 2017-06-26 14:32 | PRG ---
This is James Joyce, Physician [employer] Worker dictating for Dr. Paulette Machuca. DATE OF SERVICE: 06/26/2017 SUBJECTIVE: Ms. Flores was seen today for followup of small bowel obstruction , status post laparotomy. She says she is still having some abdominal pain that has been about the same on the right side, at times they have gotten worse. She was then started on diet. She did have breakfast this morning. No vomiting has been noted. She does report bowel movement yesterday. OBJECTIVE: VITAL SIGNS: She is tachycardic. Temperature is 98.4, heart rate is 105, blood pressure 127/81, heart rate 24 and saturations are 92% on 2 liters of oxygen. HEENT: Atraumatic, normocephalic. No JVD, no masses. Trachea is midline. CARDIOVASCULAR: S1 and S2. Regular rate and rhythm. ABDOMEN: Soft. Positive bowel sounds, diffuse tenderness. Edema is present. ASSESSMENT: 1. Small bowel obstruction. 2. Sepsis. 3. History of hypertension. 4. Morbid obesity. PLAN: Continue with current diet regimen, continue with pain management, medical team for medical management. Continue to encourage mobilization and spirometer. We will notify Dr. Machuca about the tachycardia and abdominal pain. No vomiting has been noted. She continues to have flatus. We will order a CBC/Trop/EKG/ and CT c PO contrast Dr. Machuca has seen the patient at bedside and agrees with the above plan. [facility] NETWORKCash
--- NOTE | 2017-06-26 15:50 | CT ---
CT OF ABDOMEN AND PELVIS PERFORMED WITH INTRAVENOUS CONTRAST ENHANCEMENT: 06/26/17 HISTORY: Abdominal pain status post small bowel repair. COMPARISON: An 06/18/17 CT examination which showed a high grade small bowel obstruction. There has been development of bilateral pleural effusions with bibasilar atelectatic lung change. The liver, spleen, and pancreas regions appear unremarkable. I do not identify a gallbladder. Right and left adrenal glands and right and left kidneys are normal in size. A lower pole left renal cyst is noted. There is a mid pole nonobstructing left renal calculus seen. there is no significant p eriaortic or mesenteric adenopathy. Postoperative changes of the anterior abdominal wall are noted. T here is some fat stranding associated with this. I do not see any signs of obstruction. There is some air present within the colon. I do not see any signs of any abscess collection or free fluid. A Fole y catheter is present within the bladder. There is some minimal sigmoid diverticulosis noted. IMPRESSION: 1. Postoperative changes of the abdomen related to surgery related to small bowel obstruction. I do not see any signs of any type of leak or evidence of free air or abscess collection. 2. Sigmoid diverticulosis. 3. Moderate bilateral effusions with bibasilar atelectatic lung changes. POS: [facility]
--- NOTE | 2017-06-26 16:35 | PDOC.PN ---
- Subjective Encounter Start Date: 06/26/17 Encounter Start Time: 16:34 Ms. Flores was seen today in follow-up of SBO. she says she continues to have abdominal pain. She was evaluated by the Surgical team and a CT scan and lab work was ordered. She still has some pain, but is a little better. - Objective MAR Reviewed: Yes Vital Signs & Weight: Vital Signs (12 hours) Temp Pulse Resp BP BP BP Pulse Ox 06/26/17 15:58 98.5 F 105 H 20 131/59 L 91 L 06/26/17 12:38 104 H 18 96 06/26/17 11:35 98.7 F 104 H 20 136/84 96 06/26/17 08:19 115 H 127/81 06/26/17 07:45 98.4 F 105 H 24 H 92 L 06/26/17 07:40 98.4 F 105 H 24 H 127/81 92 L 06/26/17 06:55 100 06/26/17 06:53 99 15 100 Weight Admit Weight 225 lb Weight 225 lb Most Recent Monitor Data Heart Rate from ECG 90 NIBP 171/56 NIBP BP-Mean 97 Respiration from ECG 34 SpO2 91 I&O: 06/25/17 06/26/17 06/27/17 06:59 06:59 06:59 Intake Total 2125 3915 Output Total 1450 3925 Balance 675 -10 Result Diagrams: 06/26/17 12:09 06/26/17 04:29 Phys Exam - Physical Examination HEENT: PERRLA Respiratory: no wheezing, no rales, no rhonchi, clear to auscultation bilateral Cardiovascular: RRR, no significant murmur Gastrointestinal: soft, positive bowel sounds mild distention, Tympanic to percussion Musculoskeletal: no edema Dx/Plan (1) SBO (small bowel obstruction) Code(s): K56.609 - UNSP INTESTNL OBST, UNSP TO PARTIAL VERSUS COMPLETE OBST Status: Acute Comment: s/p laparotomy, small bowel resection (2) Sepsis Code(s): A41.9 - SEPSIS, UNSPECIFIED ORGANISM Status: Acute (3) HTN (hypertension) Code(s): I10 - ESSENTIAL (PRIMARY) HYPERTENSION Status: Chronic Qualifiers: (4) Morbid obesity with BMI of 40.0-44.9, adult Code(s): E66.01 - MORBID (SEVERE) OBESITY DUE TO EXCESS CALORIES; Z68.41 - BODY MASS INDEX (BMI) 40.0-44.9, ADULT Status: Chronic - Plan * SBO- resolving- CT scan was noted to be essentially negative, except some basilar atelectasis, and pleural effusions * Continue as per Surgical recommendations * Peritonitis- continue Meropenem * HTN- blood pressure is controlled * DM - blood glucose is stable.
[2017-06-26] MEDS ORDERED: Sodium Chloride 0.9% 500 ML IV SCH (18:30)
[2017-06-26] MEDS: Montelukast Sodium 10 mg Tablet PO SCH (20:30)
[2017-06-26] MEDS: Enoxaparin Sodium 40 MG/0.4 ML SYRINGE SC SCH (20:30)
[2017-06-26] MEDS: Mirtazapine 15 MG TAB PO SCH (20:30)
[2017-06-27 05:49] LABS: ALT (SGPT) 46 U/L (8-55); AST (SGOT) 39 U/L (5-34); Alkaline Phosphatase 129 U/L (40-150); Anion Gap 11 mmol/L (10-20); BUN (Urea Nitrogen) 14 mg/dL (9.8-20.1); Bilirubin, Total 0.4 mg/dL (0.2-1.2); Calc. Creatinine Clearance 89 mL/min (70-130); Carbon Dioxide 28 mmol/L (23-31); Chloride 102 mmol/L (98-107); Estimated GFR-MDRD Greater than 90; Magnesium 1.8 mg/dL (1.6-2.6); Phosphorus 3.3 mg/dL (2.3-4.7); Protein, Total 5.8 g/dL (6.0-8.3)
[2017-06-27] MEDS: Meropenem 1 GM in Sodium Chloride 0.9% 100 ML IVPB SCH ×3 (06:13→21:02)
[2017-06-27] MEDS: Mometasone/Formoterol 120 PUFF INHALER INH SCH ×2 (06:44→19:24)
[2017-06-27] MEDS: Amlodipine 5 MG TAB PO SCH (08:27)
[2017-06-27] MEDS: Carvedilol 3.125 MG TAB PO SCH ×2 (08:27→17:17)
[2017-06-27] MEDS: Citalopram 20 MG TAB PO SCH (08:31)
[2017-06-27] MEDS: Pantoprazole 40 MG VIAL IVP SCH (08:31)
--- NOTE | 2017-06-27 08:36 | PDOC.PN ---
- Subjective Encounter Start Date: 06/27/17 Encounter Start Time: 08:34 Ms. Flores was seen today in follow-up of SBO. She says the abdominal pain has improved. (she looks more comfortable this morning). She denies chest pain or shortness of breath. - Objective MAR Reviewed: Yes Vital Signs & Weight: Vital Signs (12 hours) Temp Pulse Resp BP BP Pulse Ox 06/27/17 08:27 97 121/38 L 06/27/17 06:42 100 14 98 06/27/17 04:01 97.8 F 95 16 145/73 H 98 06/27/17 03:08 98 06/27/17 00:00 99 16 98 Weight Admit Weight 225 lb Weight 225 lb Most Recent Monitor Data Heart Rate from ECG 90 NIBP 171/56 NIBP BP-Mean 97 Respiration from ECG 34 SpO2 91 I&O: 06/26/17 06/27/17 06/28/17 06:59 06:59 06:59 Intake Total 3915 2493 Output Total 3925 2100 Balance -10 393 Result Diagrams: 06/26/17 12:09 06/27/17 04:34 Phys Exam - Physical Examination HEENT: PERRLA Respiratory: no wheezing, no rales, no rhonchi, clear to auscultation bilateral Cardiovascular: RRR, no significant murmur Gastrointestinal: soft, positive bowel sounds mild diffuse tenderness Musculoskeletal: no edema Dx/Plan (1) SBO (small bowel obstruction) Code(s): K56.609 - UNSP INTESTNL OBST, UNSP TO PARTIAL VERSUS COMPLETE OBST Status: Acute Comment: s/p laparotomy, small bowel resection (2) Sepsis Code(s): A41.9 - SEPSIS, UNSPECIFIED ORGANISM Status: Acute (3) HTN (hypertension) Code(s): I10 - ESSENTIAL (PRIMARY) HYPERTENSION Status: Chronic Qualifiers: (4) Morbid obesity with BMI of 40.0-44.9, adult Code(s): E66.01 - MORBID (SEVERE) OBESITY DUE TO EXCESS CALORIES; Z68.41 - BODY MASS INDEX (BMI) 40.0-44.9, ADULT Status: Chronic - Plan * SBO- she is slowly improving. She is tolerating a solid diet * Tachycardia- her heart rate has improved. EKG was reviewed, and finding are more consistent with chronic hypertension. There were no acute findings * HTN- blood pressure is stable * DM- blood glucose is stable. * Continue to mobilize * Disposition- fdc vs. home with HH soon
--- NOTE | 2017-06-27 11:59 | RAD ---
2 VIEWS OF ABDOMEN: Date: 06/27/17 PROVIDED CLINICAL HISTORY: Status post small bowel resection. FINDINGS: The abdominal bowel gas pattern is nonspecific. Contrast material is seen within bowel related to lian or CT examination. There is no evidence for pneumoperitoneum on the decubitus radiograph. Cutaneous s taples overlie the abdomen. IMPRESSION: Nonspecific bowel gas pattern. POS: [facility]
--- NOTE | 2017-06-27 14:14 | PRG ---
DATE OF SERVICE: 06/27/2017 SUBJECTIVE: Malini Sandra is better this morning, less short of breath, less coughing, status post l ap. OBJECTIVE: VITAL SIGNS: Blood pressure 121/38, sats are 98% and temperature 98. CHEST: Reveals decreased breath sounds. No wheezing. CARDIAC: Normal S1 and S2. No gallops. ABDOMEN: Soft. No masses. LABORATORY DATA: White count 12,000, hemoglobin and hematocrit 10 and 32, platelet count 252. Elect rolytes are normal. IMPRESSION: Respiratory failure postop, chronic obstructive pulmonary disease and atelectasis. PLAN: Continue nebs and steroids. Continue PT. Continue supportive care.
--- NOTE | 2017-06-27 14:58 | EKG ---
Test Reason : CODE GREEN Blood Pressure : / mmHG Vent. Rate : 113 BPM Atrial Rate : 113 BPM P-R Int : 170 ms QRS Dur : 092 ms QT Int : 326 ms P-R-T Axes : 064 -07 092 degrees QTc Int : 447 ms Sinus tachycardia Moderate voltage criteria for LVH, may be normal variant Abnormal QRS-T angle, consider primary T wave abnormality Abnormal ECG Confirmed by TORI MCCORMICK (2) on 06/27/2017 2:58:05 PM Referred By: Confirmed By:TORI MCCORMICK
--- NOTE | 2017-06-27 17:29 | PRG ---
DATE OF SERVICE: 06/27/2017 This is James Joyce PA-C dictating for Paulette Machuca M.D. SUBJECTIVE: No acute events overnight. The patient seems the abdominal pain has improved, more comfortable this morning. She denies any chest pain or shortness of breath. OBJECTIVE: VITAL SIGNS: Current vital signs are temperature 97.8, heart rate of 100, respiratory rate of 14, 121/38 on blood pressure. HEENT: She is atraumatic, normocephalic. RESPIRATORY: Clear bilaterally via auscultation. CARDIOVASCULAR: S1, S2, regular rate and rhythm. ABDOMEN: Soft. Mild diffuse tenderness. Nondistended. MUSCULOSKELETAL: No edema. LABORATORY DATA: Chemistry on 06/27/2017, sodium of 137, potassium 3.8, chloride 102, bicarbonate 28, BUN 14, creatinine is 0.69, glucose 99. ASSESSMENT: 1. SBO. 2. Sepsis. 3. Hypertension. 4. Morbid obesity. PLAN: Slowly improving, tolerating salt-diet. Tachycardia is improved. EKG reviewed, no acute findings. For hypertension, blood pressure is stable. Continue with medical management per [facility]. Surgery weaver, we have opened up two gem on the lower portion of the abdomen. Wound looked slightly erythematous and warm. Once opened up, it appeared to be some old hematoma and some fat necrosis per Dr. Paulette Machuca. We sent that off for the Gram stain culture and we will await the results. Dr. Gutierrez will resume care tomorrow. The patient has been seen by Dr. Machuca at bedside and agrees with the above plan. [facility]
[2017-06-27] MEDS: Enoxaparin Sodium 40 MG/0.4 ML SYRINGE SC SCH (20:59)
[2017-06-27] MEDS: Montelukast Sodium 10 mg Tablet PO SCH (20:59)
[2017-06-27] MEDS: Mirtazapine 15 MG TAB PO SCH (20:59)
[2017-06-28 05:54] LABS: PTT 42.5 SEC (22.9-36.1); Prothrombin Time 14.7 SEC (12.0-14.7)
[2017-06-28] MEDS: Meropenem 1 GM in Sodium Chloride 0.9% 100 ML IVPB SCH ×3 (06:28→21:53)
[2017-06-28 06:52] LABS: ALT (SGPT) 43 U/L (8-55); AST (SGOT) 38 U/L (5-34); Alkaline Phosphatase 150 U/L (40-150); Anion Gap 9 mmol/L (10-20); BUN (Urea Nitrogen) 12 mg/dL (9.8-20.1); Bilirubin, Total 0.3 mg/dL (0.2-1.2); Calc. Creatinine Clearance 90 mL/min (70-130); Calcium 8.7 mg/dL (7.8-10.44); Carbon Dioxide 31 mmol/L (23-31); Chloride 104 mmol/L (98-107); Cholesterol 126 mg/dl (< 200 Desired); Estimated GFR-MDRD Greater than 90; Globulin 2.9 g/dL (2.4-3.5); LDL Cholesterol, Calculated 70 mg/dL; Magnesium 1.7 mg/dL (1.6-2.6); Phosphorus 2.6 mg/dL (2.3-4.7); Protein, Total 5.6 g/dL (6.0-8.3)
[2017-06-28] MEDS: Carvedilol 3.125 MG TAB PO SCH ×2 (09:05→18:05)
[2017-06-28] MEDS: Amlodipine 5 MG TAB PO SCH (09:05)
[2017-06-28] MEDS: Citalopram 20 MG TAB PO SCH (09:06)
[2017-06-28] MEDS: Mometasone/Formoterol 120 PUFF INHALER INH SCH ×2 (09:28→19:26)
[2017-06-28] MEDS ORDERED: Acetaminophen/Codeine 30-300mg Tablet PO PRN (12:10)
--- NOTE | 2017-06-28 13:35 | PRG ---
DATE OF SERVICE: 06/28/2017 SERVICE: Pulmonary Medicine INTERVAL HISTORY: The patient is doing outstanding from a respiratory standpoint. Her pain is under better control. She denies any current fevers, chills, nausea, vomiting or chest discomfort. She h as been up, more mobile and active with physical therapy. PHYSICAL EXAMINATION: VITAL SIGNS: Afebrile, pulse 99, blood pressure 148/80, respirations 16, saturation 92% on room air. GENERAL: Awake, alert, in no apparent distress. LUNGS: Excellent air entry with no prolonged expiratory phase, wheezing, rhonchi or crackles. HEART: Normal rate, regular. ABDOMEN: Soft. Distended. Bowel sounds are present. There is no rebound or guarding. MUSCULOSKELETAL: No cyanosis or clubbing. No pitting in the bilateral lower extremities. NEUROLOGIC: Grossly nonfocal. LABORATORY DATA: WBC 12.4, hemoglobin 10.7, platelets 282,000. Lymphocyte count is decreasing. Jeimy trophil count is gently increasing. The monocytes have rebounded as well. Prealbumin is 14. Basic metabolic profile and liver function studies are essentially unremarkable otherwise except for slight ly elevated AST. C. diff antigen and toxin is unremarkable. Abdominal wound culture is negative to date. IMAGING: X-ray of the abdomen demonstrates nonspecific bowel gas pattern. ASSESSMENT: 1. Acute hypoxic respiratory failure, resolved. 2. Atelectasis of the left lower lobe. 3. Severe sepsis, improving. 4. Gross peritonitis. 5. Small-bowel obstruction is an ischemic gut, status post laparotomy with small bowel resection. 6. Asthma without current exacerbation. 7. Deconditioning. 8. Obstructive sleep apnea, mild. PLAN: We will continue supportive care moving forward. Our mobilization efforts will continue. At this point, she has no further requirements for inpatient Pulmonary or Critical Care opinion. As suc h, I will sign off. If her clinical condition deteriorates, give me a phone call.
--- NOTE | 2017-06-28 17:16 | PDOC.PN ---
- Subjective Encounter Start Date: 06/28/17 Encounter Start Time: 17:14 Ms. Flores was seen today in follow-up. She is still noting some abdominal pain. She has been able to eat some solids and drink some ensure. - Objective MAR Reviewed: Yes Vital Signs & Weight: Vital Signs (12 hours) Temp Pulse Resp BP BP Pulse Ox 06/28/17 13:57 93 16 06/28/17 12:32 98.3 F 99 148/80 H 92 L 06/28/17 09:28 93 16 06/28/17 09:18 93 16 99 06/28/17 09:05 93 141/85 H 06/28/17 08:00 98.3 F 93 16 141/85 H 99 Weight Admit Weight 225 lb Weight 225 lb Most Recent Monitor Data Heart Rate from ECG 90 NIBP 171/56 NIBP BP-Mean 97 Respiration from ECG 34 SpO2 91 I&O: 06/27/17 06/28/17 06/29/17 06:59 06:59 06:59 Intake Total 2493 1870 Output Total 2100 1700 Balance 393 170 Result Diagrams: 06/26/17 12:09 06/28/17 05:30 Phys Exam - Physical Examination Respiratory: no wheezing, no rales, no rhonchi, clear to auscultation bilateral Cardiovascular: RRR, no significant murmur Gastrointestinal: soft + diffuse tenderness Musculoskeletal: no edema Dx/Plan (1) SBO (small bowel obstruction) Code(s): K56.609 - UNSP INTESTNL OBST, UNSP TO PARTIAL VERSUS COMPLETE OBST Status: Acute Comment: s/p laparotomy, small bowel resection (2) Sepsis Code(s): A41.9 - SEPSIS, UNSPECIFIED ORGANISM Status: Acute (3) HTN (hypertension) Code(s): I10 - ESSENTIAL (PRIMARY) HYPERTENSION Status: Chronic Qualifiers: (4) Morbid obesity with BMI of 40.0-44.9, adult Code(s): E66.01 - MORBID (SEVERE) OBESITY DUE TO EXCESS CALORIES; Z68.41 - BODY MASS INDEX (BMI) 40.0-44.9, ADULT Status: Chronic - Plan * SBO- resolved, she is tolerating a solid diet * Peritonitis with sepsis- resolving- continue Meropenem * HTN - blood pressure is stable * Continue to mobilize as tolerated .
[2017-06-28] MEDS: cloNIDine 0.1mg/24 Hour PATCH TD SCH (19:35)
[2017-06-28] MEDS: Montelukast Sodium 10 mg Tablet PO SCH (21:53)
[2017-06-28] MEDS: Enoxaparin Sodium 40 MG/0.4 ML SYRINGE SC SCH (21:53)
[2017-06-28] MEDS: Mirtazapine 15 MG TAB PO SCH (21:54)
[2017-06-29] MEDS: Meropenem 1 GM in Sodium Chloride 0.9% 100 ML IVPB SCH ×2 (06:23→14:09)
[2017-06-29] MEDS: Mometasone/Formoterol 120 PUFF INHALER INH SCH (06:24)
--- NOTE | 2017-06-29 07:34 | EKG ---
Test Reason : STAT Blood Pressure : / mmHG Vent. Rate : 102 BPM Atrial Rate : 102 BPM P-R Int : 176 ms QRS Dur : 094 ms QT Int : 336 ms P-R-T Axes : 039 004 067 degrees QTc Int : 437 ms Sinus tachycardia Minimal voltage criteria for LVH, may be normal variant Possible Anterior infarct , age undetermined Abnormal ECG When compared with ECG of 19-JUN-2017 08:05, No significant change was found Confirmed by RAJIV RODRIGUEZ, . SAsim (4) on 06/29/2017 7:34:44 AM Referred By: JERRICA Confirmed By:DR. Ann VANCE MD
[2017-06-29] MEDS: Citalopram 20 MG TAB PO SCH (08:42)
[2017-06-29] MEDS: Amlodipine 5 MG TAB PO SCH (08:43)
[2017-06-29] MEDS: Carvedilol 3.125 MG TAB PO SCH (08:43)
[2017-06-29 12:22] VITALS: BP 133/74; TEMP 98.7
--- NOTE | 2017-06-29 13:55 | PDOC.PN ---
- Subjective Encounter Start Date: 06/29/17 Encounter Start Time: 13:54 -: old records requested/rev Patient seen and examined. No new complaints. No overnight events - Objective MAR Reviewed: Yes Vital Signs & Weight: Vital Signs (12 hours) Temp Pulse Resp BP Pulse Ox 06/29/17 12:17 98.7 F 92 16 133/74 94 L 06/29/17 11:30 89 16 94 L 06/29/17 08:45 98.3 F 91 18 06/29/17 08:43 91 06/29/17 08:00 98.4 F 107 H 16 147/81 H 94 L 06/29/17 06:24 91 16 93 L 06/29/17 06:21 91 16 93 L 06/29/17 04:52 93 L 06/29/17 04:01 98.3 F 89 16 123/71 93 L Weight Admit Weight 225 lb Weight 225 lb Most Recent Monitor Data Heart Rate from ECG 90 NIBP 171/56 NIBP BP-Mean 97 Respiration from ECG 34 SpO2 91 I&O: 06/28/17 06/29/17 06/30/17 06:59 06:59 06:59 Intake Total 1870 1120 Output Total 1700 400 Balance 170 720 Result Diagrams: 06/26/17 12:09 06/28/17 05:30 Phys Exam - Physical Examination Constitutional: NAD HEENT: PERRLA, moist MMs, sclera anicteric Neck: no JVD, supple Respiratory: no wheezing, no rales, no rhonchi Cardiovascular: RRR, no significant murmur, no rub Gastrointestinal: soft, non-tender, no distention, positive bowel sounds Musculoskeletal: no edema, pulses present Neurological: non-focal, normal sensation Psychiatric: normal affect, A&O x 3 Skin: no rash, normal turgor Dx/Plan (1) Acute kidney failure Status: Resolved (2) Encephalopathy acute Code(s): G93.40 - ENCEPHALOPATHY, UNSPECIFIED Status: Resolved (3) Hypotension Status: Resolved (4) SBO (small bowel obstruction) Code(s): K56.609 - UNSP INTESTNL OBST, UNSP TO PARTIAL VERSUS COMPLETE OBST Status: Acute Comment: s/p laparotomy, small bowel resection (5) Sepsis Code(s): A41.9 - SEPSIS, UNSPECIFIED ORGANISM Status: Acute (6) Anxiety and depression Code(s): F41.9 - ANXIETY DISORDER, UNSPECIFIED; F32.9 - MAJOR DEPRESSIVE DISORDER, SINGLE EPISODE, UNSPECIFIED Status: Chronic (7) Asthma Code(s): J45.909 - UNSPECIFIED ASTHMA, UNCOMPLICATED Status: Chronic (8) GERD (gastroesophageal reflux disease) Code(s): K21.9 - GASTRO-ESOPHAGEAL REFLUX DISEASE WITHOUT ESOPHAGITIS Status: Chronic (9) HLD (hyperlipidemia) Code(s): E78.5 - HYPERLIPIDEMIA, UNSPECIFIED Status: Chronic Qualifiers: Hyperlipidemia type: unspecified Qualified Code(s): E78.5 - Hyperlipidemia , unspecified (10) HTN (hypertension) Code(s): I10 - ESSENTIAL (PRIMARY) HYPERTENSION Status: Chronic Qualifiers: (11) Morbid obesity with BMI of 40.0-44.9, adult Code(s): E66.01 - MORBID (SEVERE) OBESITY DUE TO EXCESS CALORIES; Z68.41 - BODY MASS INDEX (BMI) 40.0-44.9, ADULT Status: Chronic (12) Acute abdomen Code(s): R10.0 - ACUTE ABDOMEN Status: Acute (13) Lactic acidosis Code(s): E87.2 - ACIDOSIS Status: Resolved (14) Peritonitis Code(s): K65.9 - PERITONITIS, UNSPECIFIED Status: Acute (15) Sepsis with acute organ dysfunction Code(s): A41.9 - SEPSIS, UNSPECIFIED ORGANISM; R65.20 - SEVERE SEPSIS WITHOUT SEPTIC SHOCK Status: Acute (16) Left lower lobe pneumonia Code(s): J18.1 - LOBAR PNEUMONIA, UNSPECIFIED ORGANISM Status: Acute (17) Transaminitis Code(s): R74.0 - NONSPEC ELEV OF LEVELS OF TRANSAMNS & LACTIC ACID DEHYDRGNSE Status: Acute (18) Ileus, postoperative Code(s): K91.89 - OTH POSTPROCEDURAL COMPLICATIONS AND DISORDERS OF DGSTV SYS; K56.7 - ILEUS, UNSPECIFIED Status: Acute - Plan cont current plan of care, 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 * po levaquin and flagyl * home health. Review of Systems - Review of Systems ENT: negative: Ear Pain, Ear Discharge, Nose Pain, Nose Discharge, Nose Congestion, Mouth Pain, Mouth Swelling, Throat Pain, Throat Swelling, Other Respiratory: negative: Cough, Dry, Shortness of Breath, Hemoptysis, SOB with Excertion, Pleuritic Pain, Sputum, Wheezing Cardiovascular: negative: Chest Pain, Palpitations, Orthopnea, Paroxysmal Noc. Dyspnea, Edema, Light Headedness, Other Gastrointestinal: negative: Nausea, Vomiting, Abdominal Pain, Diarrhea, Constipation, Melena, Hematochezia, Other Genitourinary: negative: Dysuria, Frequency, Incontinence, Hematuria, Retention , Other Musculoskeletal: negative: Neck Pain, Shoulder Pain, Arm Pain, Back Pain, Hand Pain, Leg Pain, Foot Pain, Other - Medications/Allergies Allergies/Adverse Reactions: Allergies Allergy/AdvReac Type Severity Reaction Status Date / Time Penicillins Allergy rash--"been Verified 03/24/17 23:23 a long time" Medications: Current Medications Acetaminophen/Codeine Phosphate (Tylenol #3) 1 tab PO Q4H PRN PRN Reason: Pain Last Admin: 06/28/17 15:50 Dose: 1 tab Albuterol Sulfate (Proventil Hfa) 2 puff INH Q6H PRN PRN Reason: SOB &/or Wheezing Albuterol/Ipratropium (Duoneb) 3 ml NEB [id number] [facility] Last Admin: 06/29/17 11:30 Dose: 3 ml Amlodipine Besylate (Norvasc) 5 mg PO DAILY [facility] Last Admin: 06/29/17 08:43 Dose: Not Given Carvedilol (Coreg) 3.125 mg PO BID-WM [facility] Last Admin: 06/29/17 08:43 Dose: 3.125 mg Citalopram Hydrobromide (Celexa) 20 mg PO DAILY [facility] Last Admin: 06/29/17 08:42 Dose: 20 mg Clonidine (Klgcuero-Jez-4 Patch) 0.1 mg TD Q7D [facility] Last Admin: 06/28/17 19:35 Dose: 0.1 mg Enoxaparin Sodium (Lovenox) 40 mg SC 2100 [facility] Last Admin: 06/28/17 21:53 Dose: 40 mg Meropenem 1 gm/ Sodium (Chloride) 100 mls @ 200 mls/hr IVPB Q8HR [facility] Last Admin: 06/29/17 06:23 Dose: 100 mls Metoprolol Tartrate (Lopressor) 5 mg IVP Q6H PRN PRN Reason: HR>110 Last Admin: 06/21/17 11:30 Dose: 5 mg Mirtazapine (Remeron) 15 mg PO HS [facility] Last Admin: 06/28/17 21:54 Dose: 15 mg Mometasone Furoate/Formoterol Fumar (Dulera 200 Mcg/5 Mcg Inhaler) 2 puff INH BID-RT [facility] Last Admin: 06/29/17 06:24 Dose: 2 puff Montelukast Sodium (Singulair) 10 mg PO QPM [facility] Last Admin: 06/28/17 21:53 Dose: 10 mg Morphine Sulfate (Duramorph) 2 mg IVP Q2H PRN PRN Reason: Mild-Moderate Pain (1-5) Last Admin: 06/26/17 12:34 Dose: 2 mg Pantoprazole Sodium (Protonix) 40 mg PO DAILY [facility] Last Admin: 06/29/17 08:42 Dose: 40 mg Sodium Chloride (Flush - Normal Saline) 10 ml IVF Q12HR [facility] Last Admin: 06/28/17 21:54 Dose: 10 ml Sodium Chloride (Flush - Normal Saline) 10 ml IVF PRN PRN PRN Reason: Saline Flush
--- NOTE | 2017-06-29 16:47 | DIS ---
DATE OF ADMISSION: 06/18/2017 DATE OF DISCHARGE: 06/29/2017 PRIMARY CARE PHYSICIAN: Wilson Leo M.D. DISCHARGE DISPOSITION: Home with home health. PRIMARY DISCHARGE DIAGNOSES: 1. Small-bowel obstruction. 2. Acute abdomen. 3. Postoperative ileus. 4. Acute peritonitis. 5. Left lower lobe pneumonia and atelectasis. 6. Acute kidney failure. 7. Sepsis with acute organ dysfunction. 8. Abnormal liver function tests. 9. Acute encephalopathy. 10. Lactic acidosis. 11. Hypertension. SECONDARY DISCHARGE DIAGNOSES: Gastroesophageal reflux disease, dyslipidemia, asthma, anxiety, depre ssion, and obesity with body mass index of 41, physical deconditioning. PRIMARY PROCEDURE/OPERATION: Surgical repair of small-bowel obstruction by Dr. Gutierrez, central line p lacement, endotracheal intubation and mechanical ventilatory support. RADIOLOGICAL INVESTIGATION: Abdomen and pelvis CT scan, chest x-ray, abdomen x-ray, repeat abdomen a nd pelvis CT scan. SIGNIFICANT LABORATORY DATA: Hemoglobin 10.7, INR 1.1, creatinine 0.68. Urinalysis unremarkable. B lood culture negative. C. diff negative. DISCHARGE MEDICATIONS: Levaquin 500 mg p.o. daily for 5 days, Flagyl 500 mg p.o. t.i.d. for 5 days, Tylenol No. 3 one or two tablets q.6 hourly p.r.n., Florastor 250 mg p.o. daily, ProAir HFA 2 puffs q .6 hourly p.r.n., amlodipine 5 mg p.o. daily, Tessalon 100 mg q.8 hourly p.r.n., Coreg 3.125 mg p.o. b.i.d., Celexa 10 mg p.o. daily, Catapres 0.2 mg b.i.d., Lasix 20 mg p.o. daily, losartan 50 mg p.o. daily, lovastatin 40 mg p.o. at bedtime, Reglan 10 mg p.o. t.i.d., Remeron 15 mg p.o. at bedtime, Dul era 2 puffs inhalation b.i.d., Singulair 10 mg p.o. daily, multivitamin 1 tablet p.o. daily, omeprazo le 20 mg p.o. daily, potassium chloride 8 mEq p.o. daily, Phenergan with codeine 10 mL p.o. q.8 hourl y p.r.n. CONTRAINDICATIONS: None. CODE STATUS: FULL CODE. INPATIENT CONSULTANTS: Dr. Gutierrez with primary [facility] was consulted for medical management. [facility] was managing ventilator. TEST RESULTS PENDING ON DISCHARGE: None. ALLERGIES: PENICILLIN. DISCHARGE PLAN: Post hospital, patient will follow up with Dr. Gutierrez and primary care physician. HOSPITAL COURSE: An 89-year-old female who was admitted by Dr. Gutierrez for small-bowel obstruction. N ext day, patient had code green on the surgical floor and required ICU transfer. Patient required im mediate surgical intervention for small-bowel obstruction. She did not have any improvement with con servative treatment. She became hypotensive. She had acute kidney failure and she was meeting sepsi s with acute organ dysfunction criteria. She had abnormal LFT as well as acute kidney failure and hy potension. She was resuscitated with IV fluid and subsequently after surgery she remained intubated and post procedure she had ileus and post-procedure couple of days later, patient was extubated. Patient was getting meropenem for acute peritonitis. Upon stabilization, this patient was transferre d to surgical floor where we advanced her diet. Slowly, she was doing very well. Family member was not interested in going to a [facility] home. Patient has chronic physical deconditioning. We are arranging home health upon discharge. We are changing to p.o. antibiotic therapy. Overall, this patient is medically stable for discharge today.
--- NOTE | 2017-07-06 14:52 | OP ---
PREOPERATIVE DIAGNOSIS: Small bowel obstruction. PROCEDURE PERFORMED: Left subclavian central line placement. INDICATIONS: This is an 89-year-old female who is septic, just had small bowel resection for necroti c bowel, needs IV access for meds as well as TPN. DESCRIPTION OF PROCEDURE: After informed consent was obtained, the patient was placed in Trendelenbu rg position. Her chest was prepped and draped in the usual fashion. Local anesthesia infiltrated levy bcutaneously and deep, the introducer needle was inserted. Good back flow of venous blood. J wire t hreaded easily. The triple lumen catheter was inserted over the wire. The wire was removed. Each o f the ports aspirated. Good backflow of venous blood, flushed with heparinized saline, sutured in pl marry with 3-0 silk suture. Sterile bandage applied. Chest x-ray showed good placement without compli cation.
== END 2017-06-29 15:42 | disposition home health service (06) | DRG 853 ==
LOC: ERS 09:43 → SURG A 12:42 → CCU 06-19 08:36 → SURG B 06-22 08:59
PROVIDERS: ADMIT Surgery; ATTEND Surgery
PROC: 0DT80ZZ Resection of Small Intestine, Open Approach (ICD-10-PCS; principal; 2017-06-19)
PROC: 02HV33Z Insertion of Infusion Device into Superior Vena Cava, Percutaneous Approach (ICD-10-PCS; 2017-06-19)
PROC: 3E0436Z Introduction of Nutritional Substance into Central Vein, Percutaneous Approach (ICD-10-PCS; 2017-06-21)
DX: A41.9 Sepsis, unspecified organism (principal); J96.01 Acute respiratory failure with hypoxia; K65.0 Generalized (acute) peritonitis; G93.41 Metabolic encephalopathy; J18.9 Pneumonia, unspecified organism; N17.9 Acute kidney failure, unspecified; E87.2 Acidosis; K55.9 Vascular disorder of intestine, unspecified; K56.609 Unspecified intestinal obstruction, unspecified as to partial versus complete obstruction; J98.11 Atelectasis; Z68.41 Body mass index [BMI] 40.0-44.9, adult; K91.89 Other postprocedural complications and disorders of digestive system; K56.7 Ileus, unspecified; R65.20 Severe sepsis without septic shock; G47.33 Obstructive sleep apnea (adult) (pediatric); E66.01 Morbid (severe) obesity due to excess calories; I10 Essential (primary) hypertension; K21.9 Gastro-esophageal reflux disease without esophagitis; E78.5 Hyperlipidemia, unspecified; F41.9 Anxiety disorder, unspecified; J45.909 Unspecified asthma, uncomplicated; F32.9 Major depressive disorder, single episode, unspecified; K42.9 Umbilical hernia without obstruction or gangrene; Z88.0 Allergy status to penicillin; Y83.8 Other surgical procedures as the cause of abnormal reaction of the patient, or of later complication, without mention of misadventure at the time of the procedure; M19.90 Unspecified osteoarthritis, unspecified site; R79.89 Other specified abnormal findings of blood chemistry
CPT/HCPCS: 36415; 36416; 51701; 71010; 74000; 74020; 74022; 74177; 80048; 80053; 80061; 81003; 81015; 82553; 82805; 83605; 83690; 83735; 84100; 84134; 84484; 85007; 85025; 85027; 85610; 85730; 86850; 86900; 86901; 87070; 87205; 87324; 87449; 88307; 93005; 93010; 94640; 96361; 96365; 96375; A4216; A4353; C9113; G8978-GP-CM; G8979-GP-CJ; J0131; J1650; J1940; J1956; J2001; J2185; J2250; J2270; J2274; J2405; J2704; J3010; J3475; J7050; J7620; P9045

== ENCOUNTER 2017-07-26 08:23 | Outpatient (CLI) | payer OTHER | END 2017-07-26 08:24 | disposition home or self-care (01) | LOC: DTY/OP 08:23 | PROVIDERS: ATTEND Surgery | DX: K56.609 Unspecified intestinal obstruction, unspecified as to partial versus complete obstruction (principal) | CPT/HCPCS: 97802 ==